=== PATIENT | female | born 1950 | race Caucasian/White ===

== ENCOUNTER 2016-07-31 10:19 | Day surgery (SDC) | payer BC ==
[~2016-07-31] VITALS: Ht 154.9 cm; Wt 88.7 kg
[~2016-07-31 10:19] MED LIST: ALBU90AE INH; CYCL30DR BOTH EYES; DIPH25TA43 PO; IBUP200C62 PO; LIDOCAINE 1% (10mg/ml) 2ml SDV INJ ONE; LOSA100T44 PO; LOTE3.5O BOTH EYES; LOTE5DRO2 OP; LR 1,000 ML IV SCH; MOME13HF4 INH; MULT-933 PO; PARO-38 PO; PHENYLEPHRINE 10% RIGHT EYE ONE; PRAV10TA42 PO; [UNRECOGNIZED DRUG - CODE] BOTH EYES
--- OUTSIDE RECORDS SUMMARY | 2016-07-31 10:31 | XMS REPORT | Summary of Care ---
Author Author Ana Laura Shah M.D. Organization Unknown Address [address] [place], [place] [id number] Phone Unavailable Care Team Providers Care Rn Chronic Name Role Phone Ana Laura Shah M.D. Unavailable Unavailable Yeimy Shah PP Unavailable Unavailable Unavailable Functional Status Functional Status Health Issues* Name Dates Details Functional status health issues are not documented Status: Cognitive Status Health Issues* Name Dates Details Cognitive status health issues are not documented Status: Problems Name Dates Details Scar of knee (709.2, L90.5) Status: Active Visit for screening mammogram (V76.12, Z12.31) Status: Active Dehydration (276.51, E86.0) Status: Active Asthmatic bronchitis (493.90, J45.909) Status: Active Depression (311, F32.9) Status: Active History Of Hypercholesterolemia (V12.29, Z86.39) Status: Resolved HTN (hypertension) (401.9, I10) Status: Active Shortness of breath (786.05, R06.02) Status: Active Palpitation (785.1, R00.2) Status: Active Wellness examination (V70.0, Z00.00) Status: Active Non smoker (V49.89, Z78.9) Status: Active Medications Name Dates Details Multiple Vitamin Oral Tablet TAKE 1 TABLET DAILY. Quantity: 30 Ana Laura Shah M.D.* Started 08-Feb-2014 ActivePravastatin Sodium 10 MG Oral Tablet TAKE 1 TABLET DAILY. * Quantity: 90 Refills: 3 Ana Laura Shah M.D.* Started 08-Feb-2014 ActivePARoxetine HCl - 20 MG Oral Tablet TAKE 1 TABLET DAILY. * Quantity: 90 Refills: 3 Ana Laura Shah M.D.* Started 08-Feb-2014 ActiveLotemax 0.5 % Ophthalmic Ointment Apply one time daily * Quantity: 1.5 Refills: 0 Ana Laura Shah M.D.* Started 08-Feb-2014 ActiveRestasis 0.05 % Ophthalmic Emulsion INSTILL 1 DROP IN EACH EYE TWICE DAILY NEEDED * Quantity: 1 Refills: 0 Ana Laura Shah M.D.* Started 08-Feb-2014 ActiveErythromycin 2 % External Solution APPLY SPARINGLY ONCE OR TWICE DAILY NEEDED. * Quantity: 1 Refills: 2 Ana Laura Shah M.D.* Started 16-Feb-2014 Quaghq75 ML Bottle Losartan Potassium 100 MG Oral Tablet TAKE 1 TABLET DAILY. * Quantity: 90 Refills: 3 Ana Laura Shah M.D.* Started 26-May-2014 ActiveProAir HFA 108 (90 Base) MCG/ACT Inhalation Aerosol Solution INHALE 1 TO 2 PUFFS EVERY 4 TO 6 HOURS NEEDED. * Quantity: 1 Refills: 3 Ana Laura Shah M.D.* Started 26-May-2014 Active8.5 GM Inhaler Losartan Potassium 100 MG Oral Tablet take one tablet by mouth every day * Quantity: 30 Refills: 3 Ana Laura Shah M.D.* Started 21-Aug-2015 ActiveAnucort-HC 25 MG Rectal Suppository INSERT 1 SUPPOSITORY RECTALLY 2 TIMES DAILY. * Quantity: 20 Refills: 0 Ana Laura Shah M.D.* Started 21-Aug-2015 ActiveFluticasone Propionate 50 MCG/ACT Nasal Suspension USE 1 SPRAY IN EACH NOSTRIL ONCE DAILY. * Quantity: 3 Refills: 3 Ana Laura Shah M.D.* Started 21-Aug-2015 Active Allergies and Adverse Reactions Name Dates Details No Known Drug Allergies Status: Active Past Medical History Name Dates Details History of Anxiety (300.00, F41.9) Status: Resolved History of glaucoma (V12.49, Z86.69) Status: Resolved History Of Hypercholesterolemia (V12.29, Z86.39) Status: Resolved History of hypertension (V12.59, Z86.79) Status: Resolved Procedures Procedure Dates Details History of Tonsillectomy With Adenoidectomy History of Section History of Cataract Surgery History of Tubal Ligation History of Adrenal Gland History of Breast Surgery Lumpectomy ECG/ EKG Pendin21-Aug-2015 CBC w/ Auto Diff 7150 Ordered:21-Aug-2015 Comprehensive Metabolic Panel 1212 Ordered:21-Aug-2015 FREE T4 3604 Ordered:21-Aug-2015 THYROID STIM. HORMONE 3602 Ordered:21-Aug-2015 XRay CHEST-PA & LAT Ordered:21-Aug-2015 Immunization Name Dates Details Zoster (Zostavax) Administered on:02-Mar-2013 Diphtheria-Tetanus Toxoids 6.7-5 LFU/0.5ML Intramuscular Injectable Administered on:20-Feb-2015 Tdap (Adacel) Lot #: [id number] Administered on:20-Feb-2015 Family History Grandmother* Name Dates Details Family history of acute myocardial infarction (V17.3, Z82.49) Status: Active Sibling* Name Dates Details Family history of alcohol abuse (V61.41, Z81.1) Status: Active Family history of coronary arteriosclerosis (V17.3, Z82.49) Status: Active Mother* Name Dates Details Family history of chronic obstructive pulmonary disease (V17.6, Z82.5) Status: Active Family history of Ovarian cancer (183.0, C56.9) Status: Active Father* Name Dates Details Family history of hypertension (V17.49, Z82.49) Status: Active Family history of alcohol abuse (V61.41, Z81.1) Status: Active Family history of acute myocardial infarction (V17.3, Z82.49) Status: Active Family history of alcoholism (V17.0, Z81.1) Status: Active Brother* Name Dates Details Family history of acute myocardial infarction (V17.3, Z82.49) Status: Active Family history of alcoholism (V17.0, Z81.1) Status: Active Social History Name Dates Details Smoking Status* Never smoker Vital Signs Date Test Result Details 21-Aug-2015 09:15 BP Systolic 144 mm[Hg] Status: BP Diastolic 90 mm[Hg] Status: Heart Rate 68 /min Status: Respiration Rate 18 /min Status: Weight 201 lb Status: Body Mass Index Calculated 38.61 kg/m2 Status: Body Surface Area Calculated 1.88 m2 Status: Results Date Description Value Details 21-Aug-2015 09:50 PAP SMEAR 9600 PAP SMEAR Negative (Better) Range: 0 Plan of Care Planned Observations* Name Dates Details Planned Goals not documented Goal Planned Encounters* Appointment; Provider: Ana Laura Shah On 22-Feb-2016 09:30 * Appointment; Provider: Vandana Art On 29-Aug-2015 14:45 Instructions * Instructions not documented Encounters Appointment; Ana Laura Shah Encounter Diagnosis: Problem not documented On 21-Aug-2015 09:00 Appointment; Ana Laura Shah Encounter Diagnosis: Problem not documented On 20-Apr-2015 08:40 Appointment; Ana Laura Sahh Encounter Diagnosis: Problem not documented On 20-Feb-2015 09:00 Appointment; Ana Laura Shah Encounter Diagnosis: Problem not documented On 10:45 Appointment; Ana Laura Shah Encounter Diagnosis: Problem not documented On 26-May-2014 08:15 Appointment; Ana Laura Shah Encounter Diagnosis: Problem not documented On 06-Apr-2014 12:15 Appointment; Ana Laura Shah Encounter Diagnosis: Problem not documented On 03-Mar-2014 12:45 Appointment; Ana Laura Shah Encounter Diagnosis: Problem not documented On 23-Feb-2014 12:00 Appointment; Ana Laura Shah Encounter Diagnosis: Problem not documented On 08-Feb-2014 14:00
--- OUTSIDE RECORDS SUMMARY | 2016-07-31 10:31 | XMS REPORT | Summary of Care ---
Author Author Ana Laura Shah M.D. Organization Unknown Address [address] [place], [place] [id number] Phone Unavailable Care Team Providers Care Hourly Sales Staff Name Role Phone Ana Laura Shah M.D. Unavailable Unavailable Ana Laura Shah PP Unavailable Functional Status Functional Status Health Issues* Name Dates Details Functional status health issues are not documented Status: Cognitive Status Health Issues* Name Dates Details Cognitive status health issues are not documented Status: Problems Name Dates Details Eyes swollen (379.92, H57.8) Status: Active Atrophic, spots skin (701.3, L90.6) Status: Active History Of Hypercholesterolemia (V12.29, Z86.39) Status: Resolved HTN (hypertension) (401.9, I10) Status: Active Depression (311, F32.9) Status: Active SOB (shortness of breath) (786.05, R06.02) Status: Active Medications Name Dates Details Multiple Vitamin Oral Tablet TAKE 1 TABLET DAILY. Quantity: 30 Ana Laura Shah M.D.* Started 08-Feb-2014 ActiveLotemax [...] 2 Ana Laura Shah M.D.* Started 16-Feb-2014 [id number] ML Bottle Losartan Potassium 50 MG Oral Tablet TAKE 1 TABLET DAILY. * Quantity: 30 Refills: 6 Ana Laura Shah M.D.* Started 26-May-2014 ActiveProAir HFA 108 (90 Base) MCG/ACT Inhalation Aerosol Solution INHALE 1 TO 2 PUFFS EVERY 4 TO 6 HOURS NEEDED. * Quantity: 1 Refills: 3 Ana Laura Shah M.D.* Started 26-May-2014 Active8.5 GM Inhaler PARoxetine HCl - 20 MG Oral Tablet TAKE 1 TABLET DAILY. * Quantity: 90 Refills: 3 Ana Laura Shah M.D.* Started 08-Feb-2014 ActivePravastatin Sodium 10 MG Oral Tablet TAKE 1 TABLET DAILY. * Quantity: 90 Refills: 3 Ana Laura Shah M.D.* Started 08-Feb-2014 Active Allergies and Adverse Reactions Name Dates [...] Adrenal Gland History of Breast Surgery Lumpectomy Procedures not documented Immunization Name Dates Details Immunizations not documented Family History Grandmother* Name Dates Details Family [...] smoker Vital Signs Date Test Result Details 26-May-2014 08:11 BP Systolic 136 mm[Hg] Status: BP Diastolic 92 mm[Hg] Status: Heart Rate 72 /min Status: Respiration Rate 16 /min Status: Weight 196.125 lb Status: Height 60.5 in Status: Body Mass Index Calculated 37.67 kg/m2 Status: Body Surface Area Calculated 1.86 m2 Status: Results Date Description Value Details 26-May-2014 08:38 CBC w/ Auto Diff 7150 Comments: Fastin hours WBC 4.8 K/uL (Better) Range: 4.5-11.0 RBC 5.07 mil/uL (Above high threshold) Range: 3.60-5.00 HGB 15.1 g/dL (Better) Range: 12.0-16.0 HCT 44.7 % (Better) Range: 36.0-48.0 MCV 88.2 fL (Better) Range: 80.0-99.0 MCH 29.9 pg (Better) Range: 27.3-32.5 MCHC 33.9 % (Better) Range: 32.0-36.0 RDW 13.0 % (Better) Range: 11.6-14.8 PLATELETS 200 K/uL (Better) Range: 150-400 MPV 7.2 fL (Better) Range: 6.0-11.0 %NEUTRO 53.5 % (Better) Range: 37.0-80.0 %LYMPHS 29.2 % (Better) Range: 13.0-50.0 %MONO 5.8 % (Better) Range: 0.0-12.0 %EOS 7.4 % (Above high threshold) Range: 0.0-7.0 %BASO 1.6 % (Better) Range: 0.0-2.5 %HAM 2.3 % (Better) Range: 0.0-5.0 NEUTRO 2.6 K/uL (Better) Range: 2.0-6.9 LYMPHS 1.4 K/uL (Better) Range: 0.6-3.4 MONOS 0.3 K/uL (Better) Range: 0.0-0.9 EOS 0.4 K/uL (Better) Range: 0.0-0.7 BASO 0.1 K/uL (Better) Range: 0.0-0.2 09:10 BASIC METABOLIC PROFILE 1210 Comments: Fastin hours SODIUM 145 mmol/L (Above high threshold) Range: 133-144 POTASSIUM 4.3 mmol/L (Better) Range: 3.5-5.1 CHLORIDE 107 mmol/L (Better) Range: 98-110 CARBON DIOXIDE 31.2 mmol/L (Better) Range: 23.0-33.0 ANION GAP 7 mmol/L (Better) Range: 6-16 BUN 24 mg/dL (Above high threshold) Range: 7-18 CREATININE, SERUM 0.92 mg/dL (Better) Range: 0.43-1.13 EST GFR, >60 ml/min (Better) Range: >60 EST GFR, NON-AFR [place] >60 ml/min (Better) Range: >60 Comments: EST GFR is reported in ml/min per 1.73 m2 of body surface area. For -Danish, please multiple result by 1.2.----- BUN:CREATININE RATIO 26 (Better) GLUCOSE 95 mg/dL (Better) Range: 70-100 CALCIUM 8.6 mg/dL (Better) Range: 8.5-10.1 09:10 LIVER PROFILE 1215 Comments: Fastin hours ALK PHOSPHATASE 48 U/L (Better) Range: 46-116 Comments: Please Note: New Reference Range effective 2013.----- TOTAL BILIRUBIN 0.40 mg/dL (Better) Range: 0.20-1.00 DIRECT BILIRUBIN 0.10 mg/dL (Better) Range: 0.00-0.20 AST 12 U/L (Better) Range: 8-35 ALT 25 U/L (Better) Range: 12-78 ALBUMIN 3.7 g/dL (Better) Range: 3.4-5.0 TOTAL PROTEIN 7.1 g/dL (Better) Range: 6.4-8.2 09:13 FREE T4 3604 Comments: Fastin hours FREE T4 1.05 ng/dL (Better) Range: 0.80-1.67 09:13 THYROID STIM. HORMONE 3602 Comments: Fastin hours THYROID STIM. HORMONE 2.566 uIU/mL (Better) Range: 0.550-4.780 Comments: \[id number]\No established reference ranges for infants and children < 2 years of ageNo established reference ranges for infants and children <2 years of age----- Plan of Care Planned Observations* Name Dates Details Planned Goals not documented Goal Planned Encounters* Appointment; Provider: Ana Laura Shah On 14-Feb-2015 09:00 * Appointment; Provider: Ana Laura Shah On 08:15 Instructions * Instructions not documented Encounters Appointment; Ana Laura Shah Diagnosis: Problem not documented On 26-May-2014 08:15 Appointment; Ana Laura Shah Encounter Diagnosis: Problem not documented On 06-Apr-2014 12:15 Appointment; Ana Laura Shah Diagnosis: Problem not documented On 03-Mar-2014 12:45 Appointment; Ana Laura Shah Diagnosis: Problem not documented On 23-Feb-2014 12:00 Appointment; Ana Laura Shah Diagnosis: Problem not documented On 08-Feb-2014 14:00
--- OUTSIDE RECORDS SUMMARY | 2016-07-31 10:31 | XMS REPORT | Summary of Care ---
Author Author Ana Laura Shah M.D. Organization Unknown Address [address] [place], [place] [id number] Phone Unavailable Care Team Providers Care Game Programer Name Role Phone Ana Laura Shah M.D. Unavailable Unavailable Yeimy Shah Unavailable Unavailable Unavailable Unavailable Functional Status Name Dates Details Functional status health issues are not documented Status: Name Dates Details Cognitive status health issues are not documented Status: Problems Name Dates Details Non smoker (V49.89, Z78.9) Status: Active Encounter for screening for malignant neoplasm of colon (V76.51, Z12.11) Status: Active Colon polyp (211.3, K63.5) Status: Active Hyperlipidemia (272.4, E78.5) Status: Active Asthmatic bronchitis (493.90, J45.909) Status: Active Depression (311, F32.9) Status: Active History of hypercholesterolemia (V12.29, Z86.39) Status: Resolved HTN (hypertension) (401.9, I10) Status: Active Special screening examination for other specified viral diseases (V73.89, Z11.59) Status: Active Preop examination (V72.84, Z01.818) Status: Active Pre-operative exam (V72.84, Z01.818) Status: Active Medications Name Dates Details Multiple Vitamin TABS TAKE 1 TABLET DAILY. Quantity: 30 Shah M.D., Ana Laura * Start 08-Feb-2014 Active Pravastatin Sodium 10 MG Oral Tablet TAKE 1 TABLET DAILY. * Quantity: 90 Refills: 3 Shah M.D., Ana Laura * Start 08-Feb-2014 Active PARoxetine HCl - 20 MG Oral Tablet TAKE 1 TABLET DAILY. * Quantity: 90 Refills: 3 Shah M.D., Ana Laura * Start 08-Feb-2014 Active Lotemax 0.5 % Ophthalmic Ointment Apply one time daily * Quantity: 1.5 Refills: 0 Shah M.D., Ana Laura * Start 08-Feb-2014 Active Restasis 0.05 % Ophthalmic Emulsion INSTILL 1 DROP IN EACH EYE TWICE DAILY NEEDED * Quantity: 1 Refills: 0 Shah M.D., Ana Laura * Start 08-Feb-2014 Active Erythromycin 2 % External Solution APPLY SPARINGLY ONCE OR TWICE DAILY NEEDED. * Quantity: 1 Refills: 2 Pablo Medina Ana Laura Roderick Start 16-Feb-2014 Active 60 ML Bottle ProAir HFA 108 (90 Base) MCG/ACT Inhalation Aerosol Solution INHALE 1 TO 2 PUFFS EVERY 4 TO 6 HOURS NEEDED. * Quantity: 1 Refills: 5 Pablo Medina Ana Laura * Start 26-May-2014 Active 8.5 GM Inhaler Losartan Potassium 100 MG Oral Tablet take one tablet by mouth every day * Quantity: 30 Refills: 3 Pablo Allen.Lamonte Ana Laura * Start 21-Aug-2015 Active Fluticasone Propionate 50 MCG/ACT Nasal Suspension USE 1 SPRAY IN EACH NOSTRIL ONCE DAILY. * Quantity: 3 Refills: 3 Pablo Allen.Lamonte Ana Laura * Start 21-Aug-2015 Active Dulera 100-5 MCG/ACT Inhalation Aerosol INHALE 2 PUFFS TWICE DAILY. * Quantity: 1 Refills: 1 Pablo Medina Ana Laura * Start 18-Jan-2016 Active 13 GM Inhaler AmLODIPine Besylate 5 MG Oral Tablet TAKE 1 TABLET DAILY. * Quantity: 30 Refills: 3 Pablo Medina Ana Laura Roderick Start 19-Jul-2016 Active Allergies and Adverse Reactions Name Dates Details No Known Drug Allergies (Allergy) Status: Active Past Medical History Name Dates Details History of Anxiety (300.00, F41.9) Status: Resolved History of glaucoma (V12.49, Z86.69) Status: Resolved History of hypercholesterolemia (V12.29, Z86.39) Status: Resolved History of hypertension (V12.59, Z86.79) Status: Resolved History of Visit for screening mammogram (V76.12, Z12.31) Status: Resolved History of Wellness examination (V70.0, Z00.00) Status: Resolved Procedures Procedure Dates Details History of Tonsillectomy With Adenoidectomy History of Section History of Cataract Surgery History of Tubal Ligation History of Adrenal Gland History of Breast Surgery Lumpectomy Comprehensive Metabolic Panel 1212 Ordered: 19-Jul-2016 FREE T4 3604 Ordered: 19-Jul-2016 THYROID STIM. HORMONE 3602 Ordered: 19-Jul-2016 Hepatitis C ( HCV) Antibody w Reflex testing [id number] Ordered: 19-Jul-2016 Immunization Name Dates Details Zoster (Zostavax) on: 02-Mar-2013 Diphtheria-Tetanus Toxoids 6.7-5 LFU/0.5ML INJ on: 20-Feb-2015 Tdap (Adacel) Lot #: [id number] on: 20-Feb-2015 Family History Name Dates Details Family history of acute myocardial infarction (V17.3, Z82.49) Status: Active Name Dates Details Family history of alcohol abuse (V61.41, Z81.1) Status: Active Family history of coronary arteriosclerosis (V17.3, Z82.49) Status: Active Name Dates Details Family history of chronic obstructive pulmonary disease (V17.6, Z82.5) Status: Active Family history of Ovarian cancer (183.0, C56.9) Status: Active Name Dates Details Family history of hypertension (V17.49, Z82.49) Status: Active Family history of alcohol abuse (V61.41, Z81.1) Status: Active Family history of acute myocardial infarction (V17.3, Z82.49) Status: Active Family history of alcoholism (V17.0, Z81.1) Status: Active Name Dates Details Family history of acute myocardial infarction (V17.3, Z82.49) Status: Active Family history of alcoholism (V17.0, Z81.1) Status: Active Social History Name Dates Details - Status: Name Dates Details Never smoker Vital Signs Date Test Result Details 19-Jul-2016 08:38 BP Systolic 148 mm[Hg] Status: Comments: Location: ; Position: BP Diastolic 80 mm[Hg] Status: Comments: Location: ; Position: Heart Rate 80 /min Status: Comments: Location: ; Physical Findings 18 Status: Comments: Respiration Weight 199 lb Status: Body Mass Index Calculated 38.22 kg/m2 Status: Body Surface Area Calculated 1.87 m2 Status: Results Date Description Value Details 19-Jul-2016 09:21 ECG/ EKG Preop Electro CardioGram ECG waiting for interpretation, click ImageLink button to view/confirm the study. 09:33 XRay CHEST-PA & LAT Comments: Exam Date: 07/19/2016 09:26Dictation Date: 07/19/2016 09:33 X CHEST PA & LAT 10:07 Urinalysis, Reflex to Microscopic or Culture PRN [id number] pH 5.5 Range: 5.0-7.5 SP GRAVITY 1.025 Range: 1.010-1.030 APPEARANCE CLOUDY (Abnormal) Range: Clear COLOR YELLOW Range: Straw-Yellow PROTEIN NEGATIVE mg/dL Range: Negative-Trace GLUCOSE NEGATIVE mg/dL Range: Negative KETONE NEGATIVE mg/dL Range: Negative BILIRUB NEGATIVE Range: Negative BLOOD NEGATIVE Range: Negative UROBIL 1.0 EU/dL Range: 0.2-1.0 NITRITE NEGATIVE Range: Negative LEUK NEGATIVE Range: Negative Plan of Care Name Dates Details Planned Observations Planned Goals not documented Planned Encounters Appointment; Provider: Ana Laura Shah M.D. On 29-Aug-2016 10:30 Interventions Provided Medication Changes* AmLODIPine Besylate 5 MG Oral Tablet - Start Labs/Procedures/Imaging* Comprehensive Metabolic Panel 1212; To be Done: 19 Jul 2016 * FREE T4 3604; To be Done: 19 Jul 2016 * Hepatitis C ( HCV) Antibody w Reflex testing [id number]; To be Done: 19 Jul 2016 * THYROID STIM. HORMONE 3602; To be Done: 19 Jul 2016 * Urinalysis, Reflex to Microscopic or Culture PRN [id number]; Done: Jul 19 2016 9: 40AM * XRay CHEST-PA & LAT; Done: Jul 19 2016 9:33AM Instructions Name Dates Details Instructions not documented Encounters Appointment; Ana Laura Shah M.D. Encounter Diagnosis: Problem not documented On 12-Mar-2016 09:45 Appointment; Ana Laura Shah M.D. Encounter Diagnosis: Problem not documented On 22-Feb-2016 09:30 Appointment; Willian Ty M.D. Encounter Diagnosis: Problem not documented On 05-Sep-2015 10:30 Appointment; Esme Juarez Encounter Diagnosis: Problem not documented On 05-Sep-2015 10:00 Appointment; Vandana Art M.D. Encounter Diagnosis: Problem not documented On 29-Aug-2015 14:45 Appointment; Ana Laura Shah M.D. Encounter Diagnosis: Problem not documented On 21-Aug-2015 09:00 Appointment; Ana Laura Shah M.D. Encounter Diagnosis: Problem not documented On 20-Apr-2015 08:40 Appointment; Ana Laura Shah M.D. Encounter Diagnosis: Problem not documented On 20-Feb-2015 09:00 Appointment; Ana Laura Shah M.D. Encounter Diagnosis: Problem not documented On 10:45
--- OUTSIDE RECORDS SUMMARY | 2016-07-31 10:31 | XMS REPORT | Summary of Care ---
Author Author Ana Laura Shah M.D. Organization Unknown Address [address] [place], [place] [id number] Phone Unavailable Care Team Providers Care Tooling Specialist Name Role Phone Ana Laura Shah M.D. Unavailable Unavailable Yeimy Shah Unavailable Unavailable Unavailable Unavailable Functional Status Name Dates Details Functional status health issues are not documented Status: Name Dates Details Cognitive status health issues are not documented Status: Problems Name Dates Details Dehydration (276.51, E86.0) Status: Active Non smoker (V49.89, Z78.9) Status: Active Encounter for screening for malignant neoplasm of colon (V76.51, Z12.11) Status: Active Colon polyp (211.3, K63.5) Status: Active Asthmatic bronchitis (493.90, J45.909) Status: Active Depression (311, F32.9) Status: Active History of hypercholesterolemia (V12.29, Z86.39) Status: Resolved HTN (hypertension) (401.9, I10) Status: Active Hyperlipidemia (272.4, E78.5) Status: Active Inflamed seborrheic keratosis (702.11, L82.0) Status: Active Medications Name Dates Details Multiple [...] NEEDED. * Quantity: 1 Refills: 2 Pablo Allen.D., Ana Laura * Start 16-Feb-2014 Active 60 ML Bottle ProAir HFA 108 (90 Base) MCG/ACT Inhalation Aerosol Solution INHALE 1 TO 2 PUFFS EVERY 4 TO 6 HOURS NEEDED. * Quantity: 1 Refills: 3 Shah M.D., Ana Laura * Start 26-May-2014 Active 8.5 GM Inhaler Losartan Potassium 100 MG Oral Tablet take one tablet by mouth every day * Quantity: 30 Refills: 3 Pablo Allen.D., Ana Laura * Start 21-Aug-2015 Active Anucort-HC 25 MG Rectal Suppository INSERT 1 SUPPOSITORY RECTALLY 2 TIMES DAILY. * Quantity: 20 Refills: 0 Pablo Allen.D. Ana Laura * Start 21-Aug-2015 Active Fluticasone Propionate 50 MCG/ACT Nasal Suspension USE 1 SPRAY IN EACH NOSTRIL ONCE DAILY. * Quantity: 3 Refills: 3 Pablo Allen.D., Ana Laura * Start 21-Aug-2015 Active Dulera 100-5 MCG/ACT Inhalation Aerosol INHALE 2 PUFFS TWICE DAILY. * Quantity: 1 Refills: 1 Pablo Allen.Lamonte Ana Laura * Start 18-Jan-2016 Active 13 GM Inhaler PredniSONE 10 MG Oral Tablet 3 pills for 3 days, 2 pills for 3 days, 1 pill for 3 days then stop * Quantity: 18 Refills: 0 Shah M.D., Ana Laura * Start 22-Feb-2016 Active Allergies and Adverse Reactions Name Dates [...] Procedures not documented Immunization Name Dates Details Zoster (Zostavax) on: 02-Mar-2013 Diphtheria-Tetanus Toxoids 6.7-5 LFU/0.5ML INJ on: 20-Feb-2015 Tdap (Adacel) Lot #: [id number] on: 20-Feb-2015 Family History Name Dates Details [...] smoker Vital Signs Date Test Result Details 22-Feb-2016 09:41 BP Systolic 128 mm[Hg] Status: Comments: Location: ; Position: BP Diastolic 80 mm[Hg] Status: Comments: Location: ; Position: Heart Rate 72 /min Status: Comments: Location: ; Physical Findings 18 Status: Comments: Respiration Height 60.5 in Status: Weight 198 lb Status: Body Mass Index Calculated 38.03 kg/m2 Status: Body Surface Area Calculated 1.87 m2 Status: Results Date Description Value Details 22-Feb-2016 10:16 CBC w/ Auto Diff 7150 Comments: Fastin hours WBC 4.1 K/uL (Below low threshold) Range: 4.5-11.0 RBC 4.78 mil/uL Range: 3.60-5.00 HGB 14.3 g/dL Range: 12.0-16.0 HCT 42.3 % Range: 36.0-48.0 MCV 88.6 fL Range: 80.0-99.0 MCH 29.9 pg Range: 27.3-32.5 MCHC 33.8 % Range: 32.0-36.0 RDW 13.2 % Range: 11.6-14.8 PLATELETS 199 K/uL Range: 150-400 MPV 6.4 fL Range: 6.0-11.0 %NEUTRO 59.4 % Range: 37.0-80.0 %LYMPHS 22.3 % Range: 13.0-50.0 %MONO 5.0 % Range: 0.0-12.0 %EOS 9.8 % (Above high threshold) Range: 0.0-7.0 %BASO 0.8 % Range: 0.0-2.5 %HAM 2.8 % Range: 0.0-5.0 NEUTRO 2.4 K/uL Range: 2.0-6.9 LYMPHS 0.9 K/uL Range: 0.6-3.4 MONOS 0.2 K/uL Range: 0.0-0.9 EOS 0.4 K/uL Range: 0.0-0.7 BASO 0.0 K/uL Range: 0.0-0.2 10:35 LIPID PROFILE 1184 Comments: Fastin hours CHOLESTEROL 191 mg/dL Range: <200 TRIGLYCERIDES 143 mg/dL Range: 30-200 HDL Cholesterol 53 mg/dL Range: >39 NON HDL CHOLESTEROL 138 CARDIAC RSK FACTOR 3.6 units (Below low threshold) Range: 4.4-5.0 LDL - CALCULATED 109 mg/dL Range: 0-130 10:39 Comprehensive Metabolic Panel 1212 Comments: Fastin hours SODIUM 144 mmol/L Range: 133-144 POTASSIUM 4.8 mmol/L Range: 3.5-5.1 CHLORIDE 105 mmol/L Range: 98-110 CARBON DIOXIDE 31.1 mmol/L Range: 23.0-33.0 ANION GAP 8 mmol/L Range: 6-16 BUN 18 mg/dL Range: 7-18 CREATININE, SERUM 0.99 mg/dL Range: 0.55-1.02 BUN:CREATININE RATIO 18 EST GFR, >60 ml/min Range: >60 EST GFR, NON-AFR CITIZEN OF [place] 57 ml/min (Below low threshold) Range: >60 Comments: EST GFR is reported in ml/min per 1.73 m2 of body surface area. ----- GLUCOSE 104 mg/dL (Above high threshold) Range: 70-100 ALK PHOSPHATASE 49 U/L Range: 46-116 TOTAL BILIRUBIN 0.40 mg/dL Range: 0.20-1.00 AST 16 U/L Range: 8-35 ALT 25 U/L Range: 14-59 ALBUMIN 3.6 g/dL Range: 3.4-5.0 TOTAL PROTEIN 7.0 g/dL Range: 6.4-8.2 A/G RATIO 1.1 units Range: 1.0-1.8 CALCIUM 8.5 mg/dL Range: 8.5-10.1 10:43 FREE T4 3604 Comments: Fastin hours FREE T4 1.01 ng/dL Range: 0.80-1.67 10:43 THYROID STIM. HORMONE 3602 Comments: Fastin hours THYROID STIM. HORMONE 0.843 uIU/mL Range: 0.550-4.780 Comments: No established reference ranges for infants and children <2 years of age----- Plan of Care Name Dates Details Planned Observations Planned Goals not documented Planned Encounters Appointment; Provider: Ana Laura Shah M.D. On 29-Aug-2016 10:30 Instructions Name Dates Details Instructions not documented Encounters Appointment; Ana Laura Shah M.D. Encounter Diagnosis: Problem not documented On 22-Feb-2016 09:30 Appointment; Willian yT M.D. Encounter Diagnosis: Problem not documented On 05-Sep-2015 10:30 Appointment; Larry, Esme Encounter Diagnosis: Problem not documented On 05-Sep-2015 [...] documented On 10:45 Appointment; Ana Laura Shah M.D. Encounter Diagnosis: Problem not documented On 26-May-2014 08:15 Appointment; Ana Laura Shah M.D. Encounter Diagnosis: Problem not documented On 06-Apr-2014 12:15
--- OUTSIDE RECORDS SUMMARY | 2016-07-31 10:31 | XMS REPORT | Summary of Care ---
Author Author Vandana Art M.D. Organization Unknown Address [address] [place], [place] [id number] Phone Unavailable Care Team Providers Care Instructional Paraprofessional Name Role Phone Pablo Medina, Ana Laura Unavailable Unavailable Karson Medina, Willian Unavailable Unavailable Yeimy Shah PP Unavailable Unavailable Unavailable Functional Status Functional Status Health Issues* Name Dates Details Functional status health issues are not documented Status: Cognitive Status Health Issues* Name Dates Details Cognitive status health issues are not documented Status: Problems Name Dates Details Scar of knee (709.2, L90.5) Status: Active Dehydration (276.51, E86.0) Status: Active Depression (311, F32.9) Status: Active History Of Hypercholesterolemia (V12.29, Z86.39) Status: Resolved Non smoker (V49.89, Z78.9) Status: Active Encounter for screening for malignant neoplasm of colon (V76.51, Z12.11) Status: Active Palpitation (785.1, R00.2) Status: Active Shortness of breath (786.05, R06.02) Status: Active Asthmatic bronchitis (493.90, J45.909) Status: Active Hyperlipidemia (272.4, E78.5) Status: Active HTN (hypertension) (401.9, I10) Status: Active Medications Name Dates Details Multiple [...] 2 Ana Laura Shah M.D.* Started 16-Feb-2014 [id number] ML Bottle ProAir HFA 108 (90 Base) [...] 3 Ana Laura Shah M.D.* Started 21-Aug-2015 ActivePEG-3350/Electrolytes 236 GM Oral Solution Reconstituted MIX AND DRINK DIRECTED PER COLONOSCOPY INSTRUCTIONS. * Quantity: 1 Refills: 0 Willian Ty M.D.* Started 22-Aug-2015 [id number] ML Bottle Allergies and Adverse Reactions Name Dates Details [...] of Breast Surgery Lumpectomy ECG/ EKG Pendin21-Aug-2015 Colonoscopy- Screening or Dx Ordered:21-Aug-2015 Cardiology Precert (within facility) Ordered:29-Aug-2015 XRay CHEST-PA & LAT Ordered:21-Aug-2015 Immunization Name Dates Details Zoster (Zostavax) Administered on:02-Mar-2013 Diphtheria-Tetanus Toxoids 6.7-5 LFU/0.5ML Intramuscular Injectable Administered on:20-Feb-2015 Tdap (Adacel) Lot #: [id number] Administered on:20-Feb-2015 Family History Grandmother* Name Dates [...] smoker Vital Signs Date Test Result Details 29-Aug-2015 14:56 BP Systolic 110 mm[Hg] Status: BP Diastolic 78 mm[Hg] Status: Heart Rate 98 /min Status: Weight 204.6 lb Status: O2 SAT 94 % Status: Body Mass Index Calculated 39.3 kg/m2 Status: Body Surface Area Calculated 1.9 m2 Status: 21-Aug-2015 09:15 BP Systolic 144 mm[Hg] Status: BP Diastolic 90 mm[Hg] Status: Heart Rate 68 /min Status: Respiration Rate 18 /min Status: Weight 201 lb Status: Body Mass Index Calculated 38.61 kg/m2 Status: Body Surface Area Calculated 1.88 m2 Status: Results Date Description Value Details 21-Aug-2015 09:50 PAP SMEAR 9600 PAP SMEAR Negative (Better) Range: 0 10:45 CBC w/ Auto Diff 7150 WBC 4.9 K/uL (Better) Range: 4.5-11.0 RBC 5.28 mil/uL (Above high threshold) Range: 3.60-5.00 HGB 15.7 g/dL (Better) Range: 12.0-16.0 HCT 49.0 % (Above high threshold) Range: 36.0-48.0 MCV 92.9 fL (Better) Range: 80.0-99.0 MCH 29.8 pg (Better) Range: 27.3-32.5 MCHC 32.0 % (Better) Range: 32.0-36.0 RDW 12.1 % (Better) Range: 11.6-14.8 PLATELETS 220 K/uL (Better) Range: 150-400 MPV 7.6 fL (Better) Range: 6.0-11.0 %NEUTRO 54.1 % (Better) Range: 37.0-80.0 %LYMPHS 32.0 % (Better) Range: 13.0-50.0 %MONO 5.0 % (Better) Range: 0.0-12.0 %EOS 5.3 % (Better) Range: 0.0-7.0 %BASO 1.4 % (Better) Range: 0.0-2.5 %HAM 2.2 % (Better) Range: 0.0-5.0 NEUTRO 2.7 K/uL (Better) Range: 2.0-6.9 LYMPHS 1.6 K/uL (Better) Range: 0.6-3.4 MONOS 0.2 K/uL (Better) Range: 0.0-0.9 EOS 0.3 K/uL (Better) Range: 0.0-0.7 BASO 0.1 K/uL (Better) Range: 0.0-0.2 11:03 Comprehensive Metabolic Panel 1212 SODIUM 137 mmol/L (Better) Range: 133-144 POTASSIUM 4.5 mmol/L (Better) Range: 3.5-5.1 CHLORIDE 99 mmol/L (Better) Range: 98-110 CARBON DIOXIDE 31.3 mmol/L (Better) Range: 23.0-33.0 ANION GAP 7 mmol/L (Better) Range: 6-16 BUN 20 mg/dL (Above high threshold) Range: 7-18 CREATININE, SERUM 1.09 mg/dL (Above high threshold) Range: 0.55-1.02 Comments: Please note new reference ranges effective 2014.----- BUN:CREATININE RATIO 18 (Better) EST GFR, >60 ml/min (Better) Range: >60 EST GFR, NON-AFR [place] 51 ml/min (Below low threshold) Range: >60 Comments: EST GFR is reported in ml/min per 1.73 m2 of body surface area. For -[place], please multiple result by 1.2.----- GLUCOSE 97 mg/dL (Better) Range: 70-100 ALK PHOSPHATASE 48 U/L (Better) Range: 46-116 TOTAL BILIRUBIN 0.50 mg/dL (Better) Range: 0.20-1.00 AST 17 U/L (Better) Range: 8-35 ALT 31 U/L (Better) Range: 14-59 Comments: Please note new reference ranges. Effective 07/28/2014.----- ALBUMIN 3.9 g/dL (Better) Range: 3.4-5.0 TOTAL PROTEIN 7.3 g/dL (Better) Range: 6.4-8.2 A/G RATIO 1.1 units (Better) Range: 1.0-1.8 CALCIUM 8.9 mg/dL (Better) Range: 8.5-10.1 11:26 FREE T4 3604 FREE T4 1.02 ng/dL (Better) Range: 0.80-1.67 11:26 THYROID STIM. HORMONE 3602 THYROID STIM. HORMONE 2.046 uIU/mL (Better) Range: 0.550-4.780 Comments: No established reference ranges for infants and children <2 years of age----- 29-Aug-2015 14:46 ECG/ EKG (Specialists) Electro CardioGram (Better) Plan of Care Planned Observations* Name Dates Details Planned Goals not documented Goal Planned Encounters* Appointment; Provider: Ana Laura Shah On 22-Feb-2016 09:30 * Appointment; Provider: Willian Ty On 05-Sep-2015 10:30 * Appointment; Provider: Esme Juarez On 05-Sep-2015 10:00 Instructions * Instructions not documented Encounters Appointment; Vandana Art Encounter Diagnosis: Problem not documented On 29-Aug-2015 14:45 Appointment; Ana Laura Shah Encounter Diagnosis: Problem not documented On 21-Aug-2015 09:00 Appointment; Ana Laura Shah Encounter Diagnosis: Problem not documented On 20-Apr-2015 08:40 Appointment; Ana Laura Shah Encounter Diagnosis: Problem not documented On 20-Feb-2015 [...]
--- OUTSIDE RECORDS SUMMARY | 2016-07-31 10:31 | XMS REPORT | Summary of Care ---
Author Author Ana Laura Shah M.D. Organization Unknown Address [address] [place], [place] [id number] Phone Unavailable Care Team Providers Care Shingle Shearing Machine Operator Name Role Phone Ana Laura Shah M.D. [...] Status: Active Hyperlipidemia (272.4, E78.5) Status: Active Medications Name Dates Details Multiple [...] DAILY NEEDED. * Quantity: 1 Refills: 2 Shah M.D., Ana Laura * Start 16-Feb-2014 Active 60 ML Bottle ProAir HFA 108 (90 Base) MCG/ACT Inhalation Aerosol Solution INHALE 1 TO 2 PUFFS EVERY 4 TO 6 HOURS NEEDED. * Quantity: 1 Refills: 3 Pablo Medina Ana Laura * Start 26-May-2014 Active 8.5 GM Inhaler Losartan Potassium 100 MG Oral Tablet take one tablet by mouth every day * Quantity: 30 Refills: 3 Ana Laura Shah M.D. Start 21-Aug-2015 Active Anucort-HC 25 MG Rectal Suppository INSERT 1 SUPPOSITORY RECTALLY 2 TIMES DAILY. * Quantity: 20 Refills: 0 Ana Laura Shah M.D. Start 21-Aug-2015 Active Fluticasone Propionate 50 MCG/ACT Nasal Suspension USE 1 SPRAY IN EACH NOSTRIL ONCE DAILY. * Quantity: 3 Refills: 3 Ana Laura Shah M.D. Start 21-Aug-2015 Active Dulera 100-5 MCG/ACT Inhalation Aerosol INHALE 2 PUFFS TWICE DAILY. * Quantity: 1 Refills: 1 Ana Laura Shah M.D. Start 18-Jan-2016 Active 13 GM Inhaler PredniSONE 10 MG Oral Tablet 3 pills for 3 days, 2 pills for 3 days, 1 pill for 3 days then stop * Quantity: 18 Refills: 0 Pablo Medina Ana Alura * Start 22-Feb-2016 Active Allergies and Adverse [...] Adrenal Gland History of Breast Surgery Lumpectomy CBC w/ Auto Diff 7150 Ordered: 22-Feb-2016 Comprehensive Metabolic Panel 1212 Ordered: 22-Feb-2016 FREE T4 3604 Ordered: 22-Feb-2016 THYROID STIM. HORMONE 3602 Ordered: 22-Feb-2016 LIPID PROFILE 1184 Ordered: 22-Feb-2016 Immunization Name Dates Details Zoster (Zostavax) on: 02-Mar-2013 Diphtheria-Tetanus Toxoids 6.7-5 LFU/0.5ML INJ on: 20-Feb-2015 Tdap (Adacel) Lot #: [id number] on: 20-Feb-2015 Family History Name Dates Details [...] m2 Status: Results Date Description Value Details Results not documented Plan of Care Name Dates Details Planned Observations Planned Goals not documented Planned Encounters Appointment; Provider: Ana Laura Shah M.D. On 29-Aug-2016 10:30 Appointment; Provider: Ana Laura Shah M.D. On 06-Mar-2016 09:45 Interventions Provided Medication Changes* PredniSONE 10 MG Oral Tablet - Start Labs/Procedures/Imaging* CBC w/ Auto Diff 7150; To be Done: 22 Feb 2016 * Comprehensive Metabolic Panel 1212; To be Done: 22 Feb 2016 * FREE T4 3604; To be Done: 22 Feb 2016 * LIPID PROFILE 1184; To be Done: 22 Feb 2016 * THYROID STIM. HORMONE 3602; To be Done: 22 Feb 2016 Instructions Name Dates Details Instructions not documented Encounters Appointment; Willian Ty M.D. Encounter Diagnosis: Problem [...] On 06-Apr-2014 12:15 Appointment; Ana Laura Shah M.D. Encounter Diagnosis: Problem not documented On 03-Mar-2014 12:45 Appointment; Ana Laura Shah M.D. Encounter Diagnosis: Problem not documented On 23-Feb-2014 12:00
--- OUTSIDE RECORDS SUMMARY | 2016-07-31 10:32 | XMS REPORT | Summary of Care ---
Author Author Pablo Medina, Ana Laura Organization Unknown Address [address] [place], [place] [id number] Phone Unavailable Care Team Providers Care Lead Auditor Name Role Phone Ana Laura Shah Unavailable Unavailable Functional Status Functional Status Health Issues* Name Dates Details No known functional status health issues Status: Cognitive Status Health Issues* Name Dates Details No known cognitive status health issues Status: Problems Name Dates Details HTN (hypertension) (401.9, I10) Status: Active Eyes swollen (379.92, H57.8) Status: Active History Of Hypercholesterolemia (V12.29, Z86.39) Status: Resolved Depression (311, F32.9) Status: Active Medications Name Dates Details Multiple Vitamin Oral Tablet TAKE 1 TABLET DAILY. Quantity: 30 Tablet * Started 08-Feb-2014 ActivePravastatin Sodium 10 MG Oral Tablet TAKE 1 TABLET DAILY. * Quantity: 90 Tablet Refills: 3 * Started 08-Feb-2014 ActiveNIFEdipine ER 30 MG Oral Tablet Extended Release 24 Hour TAKE 1 TABLET DAILY DIRECTED. * Quantity: 90 Tablet Extended Release 24 Hour Refills: 3 * Started 08-Feb-2014 ActivePARoxetine HCl - 20 MG Oral Tablet TAKE 1 TABLET DAILY. * Quantity: 90 Tablet Refills: 3 * Started 08-Feb-2014 ActiveErythromycin 2 % External Gel APPLY AND RUB IN A THIN FILM TO AFFECTED AREA(S) ONCE OR TWICE DAILY NEEDED * Quantity: 1X60 GM Tube Refills: 2 * Started 08-Feb-2014 ActiveLotemax 0.5 % Ophthalmic Ointment Apply one time daily * Quantity: 1.5 GM Refills: 0 * Started 08-Feb-2014 ActiveRestasis 0.05 % Ophthalmic Emulsion INSTILL 1 DROP IN EACH EYE TWICE DAILY NEEDED * Quantity: 1 Emulsion Refills: 0 * Started 08-Feb-2014 Active Allergies and Adverse Reactions Name Dates Details Allergy history not documented Status: Past Medical History Name Dates Details History of glaucoma (V12.49, Z86.69) Status: Resolved History Of Hypercholesterolemia (V12.29, Z86.39) Status: Resolved History of hypertension (V12.59, Z86.79) Status: Resolved Anxiety (300.00, F41.9) Status: Resolved Procedures Procedure Dates Details Tonsillectomy With Adenoidectomy Section Cataract Surgery Tubal Ligation Adrenal Gland Breast Surgery Lumpectomy BASIC METABOLIC PROFILE 1210 CBC w/ Auto Diff 7150 FREE T4 3604 LIPID PROFILE 1184 LIVER PROFILE 1215 THYROID STIM. HORMONE 3602 Immunization Name Dates Details Immunizations not documented Family History Grandmother* Name Dates Details Family history of acute myocardial infarction (V17.3, Z82.49) Status: Active Sibling* Name Dates Details Family history of alcohol abuse (V61.41, Z81.1) Status: Active Family history of coronary arteriosclerosis (V17.3, Z82.49) Status: Active Mother* Name Dates Details Family history of chronic obstructive pulmonary disease (V17.6, Z82.5) Status: Active Ovarian cancer (183.0, C56.9) Status: Active Father* [...] Status: Active Social History Name Dates Details Never smoked (V49.89, Z78.9) Smoking Status* Never smoker Vital Signs Date Test Result Details 08-Feb-2014 13:56 BP Systolic 108 mm[Hg] Status: BP Diastolic 72 mm[Hg] Status: Heart Rate 88 /min Status: Respiration Rate 12 /min Status: Weight 200.125 lb Status: Height 61 in Status: Body Mass Index Calculated 37.81 kg/m2 Status: Body Surface Area Calculated 1.89 Status: Results Date Description Value Details Results not documented Plan of Care Instructions* Instructions not documented Planned Observations* Name Dates Details Planned Goals not documented Goal Planned Encounters* Appointment; Provider: Ana Laura Shah On 14-Feb-2015 09:00 Instructions * No Known Instructions Encounters Appointment; Ana Laura Shah Encounter Diagnosis: Problem not documented On 08-Feb-2014 14:00
--- OUTSIDE RECORDS SUMMARY | 2016-07-31 10:32 | XMS REPORT | Summary of Care ---
Author Author Ana Laura Shah M.D. Organization Unknown Address [address] [place], [place] [id number] Phone Unavailable Care Team Providers Care Project Program Manager Name Role Phone Ana Laura Shah M.D. Unavailable Unavailable Yeimy Shah PP Unavailable Functional Status Functional Status Health Issues* Name Dates Details Functional status health issues are not documented Status: Cognitive Status Health Issues* Name Dates Details Cognitive status health issues are not documented Status: Problems Name Dates Details Depression (311, F32.9) Status: Active History Of Hypercholesterolemia (V12.29, Z86.39) Status: Resolved HTN (hypertension) (401.9, I10) Status: Active Scar of knee (709.2, L90.5) Status: Active Visit for screening mammogram (V76.12, Z12.31) Status: Active Medications Name Dates Details Multiple [...] 2 Ana Laura Shah M.D.* Started 16-Feb-2014 Oemfvj31 ML Bottle Losartan Potassium 50 MG Oral Tablet TAKE 1 TABLET DAILY. * Quantity: 30 Refills: 6 Ana Laura Shah M.D.* Started 26-May-2014 ActiveProAir HFA 108 (90 Base) MCG/ACT Inhalation Aerosol Solution INHALE 1 TO 2 PUFFS EVERY 4 TO 6 HOURS NEEDED. * Quantity: 1 Refills: 3 Ana Laura Shah M.D.* Started 26-May-2014 Active8.5 GM Inhaler Allergies and Adverse Reactions Name Dates Details [...] Adrenal Gland History of Breast Surgery Lumpectomy MAMMOGRAM-SCREENING Ordered:20-Feb-2015 Immunization Name Dates Details Zoster (Zostavax) Administered on:02-Mar-2013 Diphtheria-Tetanus Toxoids 6.7-5 LFU/0.5ML Intramuscular Injectable Administered on:20-Feb-2015 Tdap (Adacel) Lot #: [id number] Administered on:20-Feb-2015 Family History Grandmother* Name Dates [...] smoker Vital Signs Date Test Result Details 20-Feb-2015 09:04 BP Systolic 130 mm[Hg] Status: BP Diastolic 92 mm[Hg] Status: Heart Rate 60 /min Status: Respiration Rate 12 /min Status: Weight 194 lb Status: Body Mass Index Calculated 37.26 kg/m2 Status: Body Surface Area Calculated 1.85 m2 Status: Results Date Description Value Details 20-Feb-2015 10:01 CBC w/ Auto Diff 7150 Comments: Fastin hours WBC 5.3 K/uL (Better) Range: 4.5-11.0 RBC 4.98 mil/uL (Better) Range: 3.60-5.00 HGB 14.8 g/dL (Better) Range: 12.0-16.0 HCT 44.5 % (Better) Range: 36.0-48.0 MCV 89.2 fL (Better) Range: 80.0-99.0 MCH 29.6 pg (Better) Range: 27.3-32.5 MCHC 33.2 % (Better) Range: 32.0-36.0 RDW 12.3 % (Better) Range: 11.6-14.8 PLATELETS 237 K/uL (Better) Range: 150-400 MPV 7.7 fL (Better) Range: 6.0-11.0 %NEUTRO 62.9 % (Better) Range: 37.0-80.0 %LYMPHS 22.7 % (Better) Range: 13.0-50.0 %MONO 4.3 % (Better) Range: 0.0-12.0 %EOS 7.3 % (Above high threshold) Range: 0.0-7.0 %BASO 1.2 % (Better) Range: 0.0-2.5 %HAM 1.6 % (Better) Range: 0.0-5.0 NEUTRO 3.4 K/uL (Better) Range: 2.0-6.9 LYMPHS 1.2 K/uL (Better) Range: 0.6-3.4 MONOS 0.2 K/uL (Better) Range: 0.0-0.9 EOS 0.4 K/uL (Better) Range: 0.0-0.7 BASO 0.1 K/uL (Better) Range: 0.0-0.2 10:35 FREE T4 3604 Comments: Fastin hours FREE T4 1.09 ng/dL (Better) Range: 0.80-1.67 10:35 THYROID STIM. HORMONE 3602 Comments: Fastin hours THYROID STIM. HORMONE 1.715 uIU/mL (Better) Range: 0.550-4.780 Comments: No established reference ranges for infants and children <2 years of age----- 11:33 BASIC METABOLIC PROFILE 1210 Comments: Fastin hours SODIUM 139 mmol/L (Better) Range: 133-144 POTASSIUM 4.6 mmol/L (Better) Range: 3.5-5.1 CHLORIDE 101 mmol/L (Better) Range: 98-110 CARBON DIOXIDE 31.7 mmol/L (Better) Range: 23.0-33.0 ANION GAP 6 mmol/L (Better) Range: 6-16 BUN 27 mg/dL (Above high threshold) Range: 7-18 CREATININE, SERUM 1.05 mg/dL (Above high threshold) Range: 0.55-1.02 Comments: Please note new reference ranges effective 2014.----- EST GFR, >60 ml/min (Better) Range: >60 EST GFR, NON-AFR [place] 53 ml/min (Below low threshold) Range: >60 Comments: EST GFR is reported in ml/min per 1.73 m2 of body surface area. For -[place], please multiple result by 1.2.----- BUN:CREATININE RATIO 26 (Better) GLUCOSE 92 mg/dL (Better) Range: 70-100 CALCIUM 8.6 mg/dL (Better) Range: 8.5-10.1 11:33 LIPID PROFILE 1184 Comments: Fastin hours CHOLESTEROL 185 mg/dL (Better) Range: <200 TRIGLYCERIDES 90 mg/dL (Better) Range: 30-200 HDL Cholesterol 59 mg/dL (Better) Range: >39 NON HDL CHOLESTEROL 126 (Better) CARDIAC RSK FACTOR 3.1 units (Below low threshold) Range: 4.4-5.0 LDL - CALCULATED 108 mg/dL (Better) Range: 0-130 11:33 LIVER PROFILE 1215 Comments: Fastin hours ALK PHOSPHATASE 51 U/L (Better) Range: 46-116 TOTAL BILIRUBIN 0.30 mg/dL (Better) Range: 0.20-1.00 DIRECT BILIRUBIN 0.10 mg/dL (Better) Range: 0.00-0.20 AST 15 U/L (Better) Range: 8-35 ALT 25 U/L (Better) Range: 14-59 Comments: Please note new reference ranges. Effective 07/28/2014.----- ALBUMIN 3.5 g/dL (Better) Range: 3.4-5.0 TOTAL PROTEIN 6.9 g/dL (Better) Range: 6.4-8.2 Plan of Care Planned Observations* Name Dates Details Planned Goals not documented Goal Planned Encounters* Appointment; Provider: Ana Laura Shah On 21-Aug-2015 09:00 Instructions * Instructions not documented Encounters Appointment; Ana Laura Shah Diagnosis: Problem not documented On 20-Feb-2015 09:00 [...]
--- OUTSIDE RECORDS SUMMARY | 2016-07-31 10:32 | XMS REPORT | Summary of Care ---
Author Author Ana Laura Shah M.D. Organization Unknown Address [address] [place], [place] [id number] Phone Unavailable Care Team Providers Care Rn Complex Care Name Role Phone Ana Laura Shah M.D. Unavailable Unavailable Yeimy Shah PP Unavailable Functional Status Functional Status Health Issues* Name Dates Details Functional status health issues are not documented Status: Cognitive Status Health Issues* Name Dates Details Cognitive status health issues are not documented Status: Problems Name Dates Details Eyes swollen (379.92, H57.8) Status: Active Atrophic, spots skin (701.3, L90.6) Status: Active SOB (shortness of breath) (786.05, R06.02) Status: Active History Of Hypercholesterolemia (V12.29, Z86.39) Status: Resolved HTN (hypertension) (401.9, I10) Status: Active Depression (311, F32.9) Status: Active Medications Name [...] 2 Ana Laura Shah M.D.* Started 16-Feb-2014 Fqbvir53 ML Bottle Losartan Potassium 50 MG Oral [...] Name Dates Details History of Anxiety (300.00, F41.1) Status: Resolved History of glaucoma (V12.49, Z86.69) Status: Resolved History Of Hypercholesterolemia (V12.29, Z86.39) Status: Resolved History of hypertension (V12.59, Z86.79) Status: Resolved Procedures Procedure Dates Details History of Tonsillectomy With Adenoidectomy History of Section History of Cataract Surgery History of Tubal Ligation History of Adrenal Gland History of Breast Surgery Lumpectomy BASIC METABOLIC PROFILE 1210 Ordered: CBC w/ Auto Diff 7150 Ordered: FREE T4 3604 Ordered: LIVER PROFILE 1215 Ordered: THYROID STIM. HORMONE 3602 Ordered: Immunization Name Dates Details Immunizations not documented [...] smoker Vital Signs Date Test Result Details 10:44 BP Systolic 130 mm[Hg] Status: BP Diastolic 88 mm[Hg] Status: Heart Rate 76 /min Status: Respiration Rate 16 /min Status: Weight 192.6 lb Status: Body Mass Index Calculated 37 kg/m2 Status: Body Surface Area Calculated 1.85 m2 Status: Results Date Description Value Details Results not documented Plan of Care Planned Observations* Name Dates Details Planned Goals not documented Goal Planned Encounters* Appointment; Provider: Ana Laura Shah On 25-Apr-2015 10:45 * Appointment; Provider: Ana Laura Shah On 14-Feb-2015 09:00 Instructions * Instructions not documented Encounters Appointment; Ana Laura Shah Diagnosis: Problem not documented On 10:45 Appointment; Ana Laura Shah Encounter Diagnosis: Problem not documented On 26-May-2014 08:15 Appointment; Ana Laura Shah Diagnosis: Problem not documented On 06-Apr-2014 12:15 Appointment; Ana Laura Shah Diagnosis: Problem not documented On 03-Mar-2014 12:45 Appointment; Ana Laura Shah Encounter Diagnosis: Problem not documented On 23-Feb-2014 12:00 Appointment; Ana Laura Shah Diagnosis: Problem not documented On 08-Feb-2014 14:00
--- OUTSIDE RECORDS SUMMARY | 2016-07-31 10:32 | XMS REPORT | Summary of Care ---
Author Author Pablo Medina, Ana Laura Organization Unknown Address [address] [place], [place] [address] Phone Unavailable Care Team Providers Care Spanish Translator Name Role Phone Ana Laura Shah M.D. Unavailable Unavailable Willian Ty M.D. Unavailable Unavailable Yeimy Shah Unavailable Unavailable Unavailable Unavailable Functional Status Name Dates Details Functional status health issues are not documented Status: Name Dates Details Cognitive status health issues are not documented Status: Problems Name Dates Details Dehydration (276.51, E86.0) Status: Active Depression (311, F32.9) Status: Active History of hypercholesterolemia (V12.29, Z86.39) Status: Resolved Non smoker (V49.89, Z78.9) Status: Active Encounter for screening for malignant neoplasm of colon (V76.51, Z12.11) Status: Active Asthmatic bronchitis (493.90, J45.909) Status: Active Hyperlipidemia (272.4, E78.5) Status: Active HTN (hypertension) (401.9, I10) Status: Active Colon polyp (211.3, K63.5) Status: Active Medications Name Dates Details Multiple [...] every day * Quantity: 30 Refills: 3 Shah M.D., Ana Laura * Start 21-Aug-2015 Active Anucort-HC 25 MG Rectal Suppository INSERT 1 SUPPOSITORY RECTALLY 2 TIMES DAILY. * Quantity: 20 Refills: 0 Shah M.D., Ana Laura * Start 21-Aug-2015 Active Fluticasone Propionate 50 MCG/ACT Nasal Suspension USE 1 SPRAY IN EACH NOSTRIL ONCE DAILY. * Quantity: 3 Refills: 3 Shah M.D., Ana Laura * Start 21-Aug-2015 Active PEG-3350/Electrolytes 236 GM Oral Solution Reconstituted MIX AND DRINK DIRECTED PER COLONOSCOPY INSTRUCTIONS. * Quantity: 1 Refills: 0 Karson Allen.Lamonte, Willian * Start 22-Aug-2015 Active 4000 ML Bottle Dulera 100-5 MCG/ACT Inhalation Aerosol INHALE 2 PUFFS TWICE DAILY. * Quantity: 1 Refills: 1 Shah M.D., Ana Laura * Start 18-Jan-2016 Active 13 GM Inhaler Allergies and Adverse Reactions Name [...] INJ on: 20-Feb-2015 Tdap (Adacel) Lot #: [id number] on: 20-Feb-2015 Family History Name Dates Details [...] smoker Vital Signs Date Test Result Details No Known Vitals to report Results Date Description Value Details Results not documented Plan of Care Name Dates Details Planned Observations Planned Goals not documented Planned Encounters Appointment; Provider: Ana Laura Shah M.D. On 22-Feb-2016 09:30 Instructions Name Dates Details Instructions not documented [...]
--- OUTSIDE RECORDS SUMMARY | 2016-07-31 10:32 | XMS REPORT | Summary of Care ---
Author Author Ana Laura Shah M.D. Organization Unknown Address [address] [place], [place] [id number] Phone Unavailable Care Team Providers Care Energy Operations Vice President Name Role Phone Ana Laura Shah M.D. Unavailable Unavailable Ana Laura Shah PP Unavailable Unavailable Unavailable Functional Status [...] Status: Active Dehydration (276.51, E86.0) Status: Active Cough (786.2, R05) Status: Active Shortness of breath (786.05, R06.02) Status: Active Medications Name Dates [...] * Quantity: 1 Refills: 0 Ana Laura hSah M.D.* Started 08-Feb-2014 ActiveErythromycin 2 % External Solution APPLY SPARINGLY ONCE OR TWICE DAILY NEEDED. * Quantity: 1 Refills: 2 Ana Laura Shah M.D.* Started 16-Feb-2014 Rtcnjo51 ML Bottle Losartan Potassium 50 MG Oral [...] Adrenal Gland History of Breast Surgery Lumpectomy D - DIMER 7505 Ordered:20-Apr-2015 Immunization Name Dates Details Zoster (Zostavax) Administered on:02-Mar-2013 Diphtheria-Tetanus Toxoids 6.7-5 LFU/0.5ML Intramuscular Injectable Administered on:20-Feb-2015 Tdap (Adacel) Lot #: [id number] Administered on:20-Feb-2015 Family History Grandmother* Name Dates [...] smoker Vital Signs Date Test Result Details 20-Apr-2015 09:02 BP Systolic 155 mm[Hg] Status: BP Diastolic 84 mm[Hg] Status: Temperature 97.9 f Status: Heart Rate 83 /min Status: Weight 188 lb Status: O2 SAT 92 % Status: Body Mass Index Calculated 36.11 kg/m2 Status: Body Surface Area Calculated 1.83 m2 Status: Results Date Description Value Details 20-Apr-2015 09:54 CBC w/ Auto Diff 7150 Comments: Items were attached to this order: Extra Tube WBC 5.2 K/uL (Better) Range: 4.5-11.0 RBC 4.91 mil/uL (Better) Range: 3.60-5.00 HGB 14.3 g/dL (Better) Range: 12.0-16.0 HCT 43.5 % (Better) Range: 36.0-48.0 MCV 88.6 fL (Better) Range: 80.0-99.0 MCH 29.2 pg (Better) Range: 27.3-32.5 MCHC 32.9 % (Better) Range: 32.0-36.0 RDW 12.6 % (Better) Range: 11.6-14.8 PLATELETS 189 K/uL (Better) Range: 150-400 MPV 7.0 fL (Better) Range: 6.0-11.0 %NEUTRO 57.8 % (Better) Range: 37.0-80.0 %LYMPHS 19.8 % (Better) Range: 13.0-50.0 %MONO 4.9 % (Better) Range: 0.0-12.0 %EOS 14.0 % (Above high threshold) Range: 0.0-7.0 %BASO 1.1 % (Better) Range: 0.0-2.5 %HAM 2.3 % (Better) Range: 0.0-5.0 NEUTRO 3.0 K/uL (Better) Range: 2.0-6.9 LYMPHS 1.0 K/uL (Better) Range: 0.6-3.4 MONOS 0.3 K/uL (Better) Range: 0.0-0.9 EOS 0.7 K/uL (Better) Range: 0.0-0.7 BASO 0.1 K/uL (Better) Range: 0.0-0.2 10:08 BNP 3103 Comments: Items were attached to this order: Extra Tube BNP 18.2 pg/mL (Better) Range: 0.0-100.0 10:10 XRay CHEST-PA & LAT Comments: Exam Date: 04/20/2015 09: 35Dictation Date: 04/20/2015 10:10 X CHEST PA & LAT (Better) 10:10 Comprehensive Metabolic Panel 1212 Comments: Items were attached to this order: Extra Tube SODIUM 139 mmol/L (Better) Range: 133-144 POTASSIUM 4.0 mmol/L (Better) Range: 3.5-5.1 CHLORIDE 102 mmol/L (Better) Range: 98-110 CARBON DIOXIDE 31.6 mmol/L (Better) Range: 23.0-33.0 ANION GAP 5 mmol/L (Below low threshold) Range: 6-16 BUN 19 mg/dL (Above high threshold) Range: 7-18 CREATININE, SERUM 0.90 mg/dL (Better) Range: 0.55-1.02 Comments: Please note new reference ranges effective 2014.----- BUN:CREATININE RATIO 21 (Better) EST GFR, >60 ml/min (Better) Range: >60 EST GFR, NON-AFR VINCENTIAN >60 ml/min (Better) Range: >60 Comments: EST GFR is reported in ml/min per 1.73 m2 of body surface area. For -Cape Verdean, please multiple result by 1.2.----- GLUCOSE 100 mg/dL (Better) Range: 70-100 ALK PHOSPHATASE 51 U/L (Better) Range: 46-116 TOTAL BILIRUBIN 0.40 mg/dL (Better) Range: 0.20-1.00 AST 19 U/L (Better) Range: 8-35 ALT 32 U/L (Better) Range: 14-59 Comments: Please note new reference ranges. Effective 07/28/2014.----- ALBUMIN 3.6 g/dL (Better) Range: 3.4-5.0 TOTAL PROTEIN 6.9 g/dL (Better) Range: 6.4-8.2 A/G RATIO 1.1 units (Better) Range: 1.0-1.8 CALCIUM 8.5 mg/dL (Better) Range: 8.5-10.1 Plan of Care Planned Observations* Name Dates Details Planned Goals not documented Goal Planned Encounters* Appointment; Provider: Ana Laura Shah On 21-Aug-2015 09:00 Instructions * Instructions not documented Encounters Appointment; Ana Laura Shah Diagnosis: Problem not documented On 20-Apr-2015 08:40 Appointment; Ana Laura Shah Diagnosis: Problem not documented On 20-Feb-2015 09:00 Appointment; Ana Laura Shah Diagnosis: Problem not documented On 10:45 Appointment; Ana Laura Shah Diagnosis: Problem not documented On 26-May-2014 08:15 Appointment; Ana Laura Shah Diagnosis: Problem not documented On 06-Apr-2014 12:15 Appointment; Ana Laura Shah Diagnosis: Problem not documented On 03-Mar-2014 12:45 Appointment; Ana Laura Shah Encounter Diagnosis: Problem not documented On 23-Feb-2014 12:00 Appointment; Ana Laura Shah Diagnosis: Problem not documented On 08-Feb-2014 14:00
--- OUTSIDE RECORDS SUMMARY | 2016-07-31 10:32 | XMS REPORT | Summary of Care ---
Author Author Rubens Medina, T. Karey Organization Unknown Address [address] [place], [place] [id number] Phone Unavailable Care Team Providers Care College Instructor Name Role Phone Pablo Medina, Ana Laura [...] Shortness of breath (786.05, R06.02) Status: Active Non smoker (V49.89, Z78.9) Status: Active Encounter for screening for malignant neoplasm of colon (V76.51, Z12.11) Status: Active Palpitation (785.1, R00.2) Status: Active Medications Name Dates Details Multiple [...] 2 Ana Laura Shah M.D.* Started 16-Feb-2014 Ovluus34 ML Bottle ProAir HFA 108 (90 Base) [...] Refills: 0 Willian Ty M.D.* Started 22-Aug-2015 [id number] ML Bottle Allergies and Adverse Reactions Name [...] Injectable Administered on:20-Feb-2015 Tdap (Adacel) Lot #: [id number] Administered on:20-Feb-2015 Family History Grandmother* Name Dates [...] ml/min (Better) Range: >60 EST GFR, NON-AFR PRYDEINIG 51 ml/min (Below low threshold) Range: >60 Comments: EST GFR is reported in ml/min per 1.73 m2 of body surface area. For -Kittitian, please multiple result by 1.2.----- GLUCOSE 97 [...]
--- OUTSIDE RECORDS SUMMARY | 2016-07-31 10:32 | XMS REPORT | Summary of Care ---
Author Author Ana Laura Shah M.D. Organization Unknown Address [address] [place], [place] [id number] Phone Unavailable Care Team Providers Care Associate Technician Name Role Phone Ana Laura Shah M.D. [...] 2 Ana Laura Shah M.D.* Started 16-Feb-2014 Aopkvw10 ML Bottle Losartan Potassium 100 MG Oral [...] 0 Ana Laura Shah M.D.* Started 21-Aug-2015 Active [...] Surgery Lumpectomy CBC w/ Auto Diff 7150 Ordered:21-Aug-2015 Comprehensive Metabolic Panel 1212 Ordered:21-Aug-2015 FREE T4 3604 Ordered:21-Aug-2015 THYROID STIM. HORMONE 3602 Ordered:21-Aug-2015 XRay CHEST-PA & LAT Ordered:21-Aug-2015 Immunization Name Dates Details Zoster (Zostavax) Administered on:02-Mar-2013 Diphtheria-Tetanus Toxoids 6.7-5 LFU/0.5ML Intramuscular Injectable Administered on:20-Feb-2015 Tdap (Adacel) Lot #: [id number] Administered on:20-Feb-2015 Family History Grandmother* Name Dates [...] Dates Details Planned Goals not documented Goal Instructions * Instructions not documented Encounters Appointment; [...]
--- OUTSIDE RECORDS SUMMARY | 2016-07-31 10:32 | XMS REPORT | Summary of Care ---
Author Author Ana Laura Shah M.D. Organization Unknown Address [address] [place], [place] [phone] Phone Unavailable Care Team Providers Care Sales Professional Name Role Phone Ana Laura Shah M.D. [...] Active Asthmatic bronchitis (493.90, J45.909) Status: Active Medications Name Dates Details Multiple [...] 2 Ana Laura Shah M.D.* Started 16-Feb-2014 Yeodgl59 ML Bottle Losartan Potassium 50 MG Oral Tablet TAKE 1 TABLET DAILY. * Quantity: 30 Refills: 6 Ana Laura Shah M.D.* Started 26-May-2014 ActiveProAir HFA 108 (90 Base) MCG/ACT Inhalation Aerosol Solution INHALE 1 TO 2 PUFFS EVERY 4 TO 6 HOURS NEEDED. * Quantity: 1 Refills: 3 Ana Laura Shah M.D.* Started 26-May-2014 Active8.5 GM Inhaler Levofloxacin 500 MG Oral Tablet TAKE ONE TABLET BY MOUTH EVERY DAY FOR 7 DAYS * Quantity: 7 Refills: 0 Ana Laura Shah M.D.* Started 20-Apr-2015 ActivePredniSONE 10 MG Oral Tablet 3 pills for 3 days, 2 pills for 3 days, 1 pill for 3 days then stop * Quantity: 18 Refills: 0 Ana Laura Shah M.D.* Started 20-Apr-2015 Active Allergies and Adverse Reactions Name Dates [...] documented Immunization Name Dates Details Zoster (Zostavax) Administered on:02-Mar-2013 Diphtheria-Tetanus Toxoids 6.7-5 LFU/0.5ML Intramuscular Injectable Administered on:20-Feb-2015 Tdap (Adacel) Lot #: [id number] Administered on:20-Feb-2015 Family History Grandmother* Name Dates [...] 04/20/2015 10:10 [facility] [id number] (X-RAY)PATIENT OF DR. SHAH BD: 1950 SECONDARY 04/20/15 X CHEST PA & LAT INDICATION: R05: COUGHCOMPARISON: None (Better) 10:10 Comprehensive Metabolic Panel 1212 Comments: [...] ml/min (Better) Range: >60 EST GFR, NON-AFR HUNGARIAN >60 ml/min (Better) Range: >60 Comments: EST GFR is reported in ml/min per 1.73 m2 of body surface area. For -Macedonian, please multiple result by 1.2.----- GLUCOSE 100 [...] 1.0-1.8 CALCIUM 8.5 mg/dL (Better) Range: 8.5-10.1 10:59 D - DIMER 7505 D-DIMER 0.39 ug/mL (Above high threshold) Range: 0.00-0.26 Comments: For patients with low clinical probability of PE of DVT, D-Dimer results of 0.25 ug/mL and less have an excellent negative predictive value in excluding a diagnosis of acute PE or EVT. However, a thromboembolic event cannot be excluded when D-Dimer values are greater than 0.25 ug/mL.----- Plan of Care Planned Observations* Name Dates [...]
[2016-07-31 10:33] VITALS: Ht 154.9 cm; Wt 88.7 kg
--- OUTSIDE RECORDS SUMMARY | 2016-07-31 10:33 | XMS REPORT | Summary of Care ---
Author Author Ana Laura Shah M.D. Organization Unknown Address [address] [place], [place] [phone] Phone Unavailable Care Team Providers Care Esthetician Makeup Artist Name Role Phone Ana Laura Shah M.D. [...] Scar of knee (709.2, L90.5) Status: Active Medications Name Dates Details Multiple [...] 2 Ana Laura Shah M.D.* Started 16-Feb-2014 Nibnfp70 ML Bottle Losartan Potassium 50 MG Oral [...] Breast Surgery Lumpectomy BASIC METABOLIC PROFILE 1210 Ordered:20-Feb-2015 CBC w/ Auto Diff 7150 Ordered:20-Feb-2015 LIPID PROFILE 1184 Ordered:20-Feb-2015 FREE T4 3604 Ordered:20-Feb-2015 LIVER PROFILE 1215 Ordered:20-Feb-2015 THYROID STIM. HORMONE 3602 Ordered:20-Feb-2015 Immunization Name Dates Details Zoster (Zostavax) Administered on:02-Mar-2013 Diphtheria-Tetanus Toxoids 6.7-5 LFU/0.5ML Intramuscular Injectable Administered on:20-Feb-2015 Family History Grandmother* Name Dates [...]
--- OUTSIDE RECORDS SUMMARY | 2016-07-31 10:33 | XMS REPORT | Summary of Care ---
Author Author Rubens Medina, T. Karey Organization Unknown Address [address] [place], [place] [phone] Phone Unavailable Care Team Providers Care Extension Course Counselor Name Role Phone Pablo Medina, Ana Laura [...] neoplasm of colon (V76.51, Z12.11) Status: Active Shortness of breath (786.05, R06.02) Status: Active Palpitation (785.1, R00.2) Status: Active Asthmatic bronchitis (493.90, J45.909) Status: Active Hyperlipidemia (272.4, E78.5) Status: Active HTN (hypertension) (401.9, I10) Status: Active Anal lesion (569.49, K62.9) Status: Active Medications Name Dates Details Multiple [...] 2 Ana Laura Shah M.D.* Started 16-Feb-2014 Klnnmi53 ML Bottle ProAir HFA 108 (90 Base) [...] Refills: 0 Willian Ty M.D.* Started 22-Aug-2015 Oospow4405 ML Bottle Allergies and Adverse Reactions Name [...] Dx Ordered:21-Aug-2015 Cardiology Precert (within facility) Ordered:29-Aug-2015 CP Echo Ordered:04-Sep-2015 CP Stress Echo Ordered:04-Sep-2015 XRay CHEST-PA & LAT Ordered:21-Aug-2015 Immunization Name Dates Details Zoster (Zostavax) Administered on:02-Mar-2013 Diphtheria-Tetanus Toxoids 6.7-5 LFU/0.5ML Intramuscular Injectable Administered on:20-Feb-2015 Tdap (Adacel) Lot #: [id number] Administered on:20-Feb-2015 Family History Grandmother* Name Dates [...] ml/min (Better) Range: >60 EST GFR, NON-AFR ZAMBIAN 51 ml/min (Below low threshold) Range: >60 Comments: EST GFR is reported in ml/min per 1.73 m2 of body surface area. For -Jamaican, please multiple result by 1.2.----- GLUCOSE 97 [...] 14:46 ECG/ EKG (Specialists) Electro CardioGram (Better) 04-Sep-2015 09:56 ECG/ EKG CP - Electro CardioGram ECG/ EKG Cardiology Read (Better) 10:49 CP Echo Y Linked PDF Report Available for Review by Clicking ImageLink Button ( Better) 10:58 CP Stress Echo Y Linked PDF Report Available for Review by Clicking ImageLink Button ( Better) Plan of Care Planned Observations* Name Dates [...]
--- OUTSIDE RECORDS SUMMARY | 2016-07-31 10:33 | XMS REPORT | Summary of Care ---
Author Author Ana Laura Shah M.D. Organization Unknown Address [address] [place], [place] [phone] Phone Unavailable Care Team Providers Care Warehouse Helper Name Role Phone Ana Laura Shah M.D. [...] Status: Active Cough (786.2, R05) Status: Active Medications Name Dates Details Multiple [...] 2 Ana Laura Shah M.D.* Started 16-Feb-2014 Epojaj40 ML Bottle Losartan Potassium 50 MG Oral [...] Breast Surgery Lumpectomy Comprehensive Metabolic Panel 1212 Ordered:20-Apr-2015 CBC w/ Auto Diff 7150 Ordered:20-Apr-2015 BNP 3103 Ordered:20-Apr-2015 XRay CHEST-PA & LAT Ordered:20-Apr-2015 Immunization Name Dates Details Zoster (Zostavax) Administered on:02-Mar-2013 Diphtheria-Tetanus Toxoids 6.7-5 LFU/0.5ML Intramuscular Injectable Administered on:20-Feb-2015 Tdap (Adacel) Lot #: [id number] Administered on:20-Feb-2015 Family History Grandmother* Name Dates [...]
--- OUTSIDE RECORDS SUMMARY | 2016-07-31 10:33 | XMS REPORT | Summary of Care ---
Author Author Ana Laura Shah M.D. Organization Unknown Address [address] [place], [place] [phone] Phone Unavailable Care Team Providers Care Hand Umbrella Tipper Name Role Phone Ana Laura Shah M.D. [...] Status: Active Dehydration (276.51, E86.0) Status: Active Medications Name Dates Details Multiple [...] 2 Ana Laura Shah M.D.* Started 16-Feb-2014 Dodfds21 ML Bottle Losartan Potassium 50 MG Oral [...] Breast Surgery Lumpectomy BASIC METABOLIC PROFILE 1210 Ordered:21-Feb-2015 MAMMOGRAM-SCREENING Ordered:20-Feb-2015 Immunization Name Dates Details Zoster (Zostavax) Administered on:02-Mar-2013 Diphtheria-Tetanus Toxoids 6.7-5 LFU/0.5ML Intramuscular Injectable Administered on:20-Feb-2015 Tdap (Adacel) Lot #: [id number] Administered on:20-Feb-2015 Family History Grandmother* Name Dates [...] ml/min (Better) Range: >60 EST GFR, NON-AFR GREENLANDIC 53 ml/min (Below low threshold) Range: >60 Comments: EST GFR is reported in ml/min per 1.73 m2 of body surface area. For -Taiwanese, please multiple result by 1.2.----- BUN:CREATININE RATIO [...]
--- OUTSIDE RECORDS SUMMARY | 2016-07-31 10:33 | XMS REPORT | Summary of Care ---
Author Author Ana Laura Shah M.D. Organization Unknown Address [address] [place], [place] [phone] Phone Unavailable Care Team Providers Care Associate Entertainment Editor Name Role Phone Ana Laura Shah M.D. [...] 2 Ana Laura Shah M.D.* Started 16-Feb-2014 Yabnil52 ML Bottle Losartan Potassium 50 MG Oral [...] Injectable Administered on:20-Feb-2015 Tdap (Adacel) Lot #: [id number] Administered on:20-Feb-2015 Family History Grandmother* Name Dates [...] ml/min (Better) Range: >60 EST GFR, NON-AFR CYPRIOT >60 ml/min (Better) Range: >60 Comments: EST GFR is reported in ml/min per 1.73 m2 of body surface area. For -Prydeinig, please multiple result by 1.2.----- GLUCOSE 100 [...]
--- OUTSIDE RECORDS SUMMARY | 2016-07-31 10:33 | XMS REPORT | Summary of Care ---
Author Author Rubens Medina, T. Karey Organization Unknown Address [address] [place], [place] [id number] Phone Unavailable Care Team Providers Care Station Cook Name Role Phone Pablo Medina, Ana Laura [...] Status: Active Palpitation (785.1, R00.2) Status: Active Non smoker (V49.89, Z78.9) Status: Active Encounter for screening for malignant neoplasm of colon (V76.51, Z12.11) Status: Active Medications Name Dates Details Multiple [...] 2 Ana Laura Shah M.D.* Started 16-Feb-2014 Advvth51 ML Bottle ProAir HFA 108 (90 Base) [...] Refills: 0 Willian Ty M.D.* Started 22-Aug-2015 Vyvawn8672 ML Bottle Allergies and Adverse Reactions Name [...] EKG Pendin21-Aug-2015 Colonoscopy- Screening or Dx Ordered:21-Aug-2015 XRay CHEST-PA & LAT Ordered:21-Aug-2015 Immunization Name Dates Details Zoster (Zostavax) Administered on:02-Mar-2013 Diphtheria-Tetanus Toxoids 6.7-5 LFU/0.5ML Intramuscular Injectable Administered on:20-Feb-2015 Tdap (Adacel) Lot #: [id number] Administered on:20-Feb-2015 Family History Grandmother* Name Dates [...] ml/min (Better) Range: >60 EST GFR, NON-AFR PANAMANIAN 51 ml/min (Below low threshold) Range: >60 Comments: EST GFR is reported in ml/min per 1.73 m2 of body surface area. For -Salvadorean, please multiple result by 1.2.----- GLUCOSE 97 [...]
--- OUTSIDE RECORDS SUMMARY | 2016-07-31 10:33 | XMS REPORT | Summary of Care ---
Author Author Ana Laura Shah M.D. Organization Unknown Address [address] [place], [place] [phone] Phone Unavailable Care Team Providers Care Digital Traffic Coordinator Name Role Phone Ana Laura Shah M.D. Unavailable Unavailable Yeimy Shah PP Unavailable Functional Status Functional Status Health Issues* Name Dates Details Functional status health issues are not documented Status: Cognitive Status Health Issues* Name Dates Details Cognitive status health issues are not documented Status: Problems Name Dates Details History Of Hypercholesterolemia (V12.29, Z86.39) Status: Resolved [...] 2 Ana Laura Shah M.D.* Started 16-Feb-2014 Rwvcdt04 ML Bottle Losartan Potassium 50 MG Oral [...] Encounters* Appointment; Provider: Ana Laura Shah On 20-Feb-2015 09:00 Instructions * Instructions not documented Encounters [...]
[2016-07-31 10:34] VITALS: BP 127/63; PULSE 69; RESP 15; TEMP 97.9; O2SAT 92
--- OUTSIDE RECORDS SUMMARY | 2016-07-31 10:34 | XMS REPORT | Summary of Care ---
Author Author Ana Laura Shah M.D. Organization Unknown Address [address] [place], [place] [id number] Phone Unavailable Care Team Providers Care Pattern Carrier Name Role Phone Ana Laura Shah M.D. [...] TAKE 1 TABLET DAILY. Quantity: 30 Shah M.D.Ana Laura * Start 08-Feb-2014 Active Pravastatin Sodium [...] daily * Quantity: 1.5 Refills: 0 Shah M.D.Ana Laura * Start 08-Feb-2014 Active Restasis 0.05 % Ophthalmic Emulsion INSTILL 1 DROP IN EACH EYE TWICE DAILY NEEDED * Quantity: 1 Refills: 0 Shah M.D.Ana Laura * Start 08-Feb-2014 Active Erythromycin 2 % External Solution APPLY SPARINGLY ONCE OR TWICE DAILY NEEDED. * Quantity: 1 Refills: 2 Shah M.D.Ana Laura * Start 16-Feb-2014 Active 60 ML Bottle ProAir HFA 108 (90 Base) MCG/ACT Inhalation Aerosol Solution INHALE 1 TO 2 PUFFS EVERY 4 TO 6 HOURS NEEDED. * Quantity: 1 Refills: 5 Shah Tiffany.D., Ana Laura * Start 26-May-2014 Active 8.5 [...] M.D., Ana Laura * Start 21-Aug-2015 Active Dulera 100-5 MCG/ACT Inhalation Aerosol INHALE 2 PUFFS TWICE DAILY. * Quantity: 1 Refills: 1 Shah Tiffany.D., Ana Laura * Start 18-Jan-2016 Active 13 [...] INJ on: 20-Feb-2015 Tdap (Adacel) Lot #: [id number] on: 20-Feb-2015 Family History Name Dates Details [...] Appointment; Provider: Ana Laura Shah M.D. On 19-Jul-2016 08:45 Instructions Name Dates Details Instructions not documented [...]
--- OUTSIDE RECORDS SUMMARY | 2016-07-31 10:34 | XMS REPORT | Summary of Care ---
Author Author Ana Laura Shah M.D. Organization Unknown Address [address] [place], [place] [id number] Phone Unavailable Care Team Providers Care Psychiatric Nursing Aide Name Role Phone Ana Laura Shah M.D. [...] Quantity: 18 Refills: 0 Pablo Medina Ana Laura * Start 22-Feb-2016 Active Allergies [...] INJ on: 20-Feb-2015 Tdap (Adacel) Lot #: [id number] on: 20-Feb-2015 Family History Name Dates Details [...] >60 ml/min Range: >60 EST GFR, NON-AFR GUAMANIAN 57 ml/min (Below low threshold) Range: >60 [...] Appointment; Provider: Ana Laura Shah M.D. On 12-Mar-2016 09:45 Interventions Provided Medication Changes* PredniSONE 10 MG Oral Tablet - Start Labs/Procedures/Imaging* CBC w/ Auto Diff 7150; Done: Feb 22 2016 10:01AM * Comprehensive Metabolic Panel 1212; Done: Feb 22 2016 10:01AM * FREE T4 3604; Done: Feb 22 2016 10:01AM * LIPID PROFILE 1184; Done: Feb 22 2016 10:01AM * THYROID STIM. HORMONE 3602; Done: Feb 22 2016 10:01AM Instructions Name Dates Details Instructions not documented [...]
--- OUTSIDE RECORDS SUMMARY | 2016-07-31 10:34 | XMS REPORT | Summary of Care ---
Author Author Karson Medina, Willian Ochoa Unknown Address [address] [place], [place] [phone] Phone Unavailable Care Team Providers Care Printing Sign Machine Operator Name Role Phone Ana Laura Shah M.D. Unavailable Unavailable Willian Ty M.D. Unavailable Unavailable Yeimy Shah PP Unavailable [...] Active Anal lesion (569.49, K62.9) Status: Active Anal itching (698.0, L29.0) Status: Active Colon polyp (211.3, K63.5) Status: [...] 2 Ana Laura Shah M.D.* Started 16-Feb-2014 [id number] ML Bottle ProAir HFA 108 (90 Base) [...] Refills: 0 Willian Ty M.D.* Started 22-Aug-2015 [id number] ML Bottle Allergies and Adverse Reactions Name [...] of Breast Surgery Lumpectomy ECG/ EKG Pendin21-Aug-2015 Cardiology Precert (within facility) Ordered:29-Aug-2015 CP Echo Ordered:04-Sep-2015 CP Stress Echo Ordered:04-Sep-2015 XRay CHEST-PA & LAT Ordered:21-Aug-2015 Immunization Name Dates Details Zoster (Zostavax) Administered on:02-Mar-2013 Diphtheria-Tetanus Toxoids 6.7-5 LFU/0.5ML Intramuscular Injectable Administered on:20-Feb-2015 Tdap (Adacel) Lot #: [id number] Administered on:20-Feb-2015 Family History Grandmother* Name Dates [...] ml/min (Better) Range: >60 EST GFR, NON-AFR BURMESE 51 ml/min (Below low threshold) Range: >60 Comments: EST GFR is reported in ml/min per 1.73 m2 of body surface area. For -Ethiopian, please multiple result by 1.2.----- GLUCOSE 97 [...] Review by Clicking ImageLink Button ( Better) 05-Sep-2015 11:29 Colonoscopy Abnormal- Polyps (Better) Range: 0 Plan of Care Planned Observations* Name Dates Details Planned Goals not documented Goal Planned Encounters* Appointment; Provider: Ana Laura Shah On 22-Feb-2016 09:30 Instructions * Instructions not documented Encounters Appointment; Willian Ty Encounter Diagnosis: Problem not documented On 05-Sep-2015 10:30 Appointment; Esme Juarez Encounter Diagnosis: Problem not documented On 05-Sep-2015 10:00 Appointment; Vandana Art Encounter Diagnosis: Problem not [...] Problem not documented On 23-Feb-2014 12:00 Appointment; AnaL aura Shah Encounter Diagnosis: Problem not documented On 08-Feb-2014 14:00
--- OUTSIDE RECORDS SUMMARY | 2016-07-31 10:34 | XMS REPORT | Summary of Care ---
Author Author Ana Laura Shah M.D. Organization Unknown Address [address] [place], [place] [phone] Phone Unavailable Care Team Providers Care Body Press Operator Name Role Phone Ana Laura Shah [...] 1 Refills: 2 Pablo Medina Ana Laura * Start 16-Feb-2014 Active 60 [...] DAILY. * Quantity: 30 Refills: 3 Pablo Allen.Lamonte Ana Laura * Start 19-Jul-2016 Active Allergies and Adverse Reactions [...] INJ on: 20-Feb-2015 Tdap (Adacel) Lot #: [id number] on: 20-Feb-2015 Family History Name Dates Details [...] smoker Vital Signs Date Test Result Details 25-Jul-2016 10:03 BP Systolic 136 mm[Hg] Status: Comments: Location: ; Position: BP Diastolic 84 mm[Hg] Status: Comments: Location: ; Position: 19-Jul-2016 08:38 BP Systolic 148 mm[Hg] Status: Comments: Location: ; Position: BP Diastolic 80 mm[Hg] Status: Comments: Location: ; Position: Heart Rate 80 /min Status: Physical Findings 18 Status: Comments: Respiration Weight 199 lb Status: Body Mass Index Calculated 38.22 kg/m2 Status: Body Surface Area Calculated 1.87 m2 Status: Results Date Description Value Details 19-Jul-2016 09:21 ECG/ EKG Preop Electro CardioGram 09:33 XRay CHEST-PA & LAT Comments: Exam [...] NEGATIVE Range: Negative LEUK NEGATIVE Range: Negative 17:20 Comprehensive Metabolic Panel 1212 SODIUM 140 mmol/L Range: 133-144 POTASSIUM 4.2 mmol/L Range: 3.5-5.1 CHLORIDE 106 mmol/L Range: 98-110 CARBON DIOXIDE 29.9 mmol/L Range: 23.0-33.0 ANION GAP 4 mmol/L (Below low threshold) Range: 6-16 BUN 20 mg/dL (Above high threshold) Range: 7-18 CREATININE, SERUM 0.98 mg/dL Range: 0.55-1.02 BUN:CREATININE RATIO 20 EST GFR, >60 ml/min Range: >60 EST GFR, NON-AFR BELGIAN 57 ml/min (Below low threshold) Range: >60 Comments: EST GFR is reported in ml/min per 1.73 m2 of body surface area. ----- GLUCOSE 71 mg/dL Range: 70-100 ALK PHOSPHATASE 51 U/L Range: 46-116 TOTAL BILIRUBIN 0.30 mg/dL Range: 0.20-1.00 AST 16 U/L Range: 8-35 ALT 27 U/L Range: 14-59 ALBUMIN 3.5 g/dL Range: 3.4-5.0 TOTAL PROTEIN 6.5 g/dL Range: 6.4-8.2 A/G RATIO 1.2 units Range: 1.0-1.8 CALCIUM 8.2 mg/dL (Below low threshold) Range: 8.5-10.1 Comments: Verified by Repeat Analysis----- 20-Jul-2016 14:59 Hepatitis C ( HCV) Antibody w Reflex testing [id number] Comments: [facility] performed at: [facility] [address] [place] [address] , [place], [address], , Traffic Control Signaler: ARUN Warren MD HCV Ab <0.1 s/co ratio Range: 0.0-0.9 Interpretation: Comment Comments: NegativeNot infected with HCV, unless recent infection issuspected or other evidence exists to indicate HCVinfection.- ---- 22-Jul-2016 15:43 THYROID STIM. HORMONE 3602 THYROID STIM. HORMONE 2.008 uIU/mL Range: 0.550-4.780 Comments: No established reference ranges for infants and children <2 years of age----- 15:49 FREE T4 3604 FREE T4 0.96 ng/dL Range: 0.80-1.67 25-Jul-2016 10:19 CBC w/ Auto Diff 7150 WBC 4.0 K/uL (Below low threshold) Range: 4.5-11.0 RBC 4.95 mil/uL Range: 3.60-5.00 HGB 14.9 g/dL Range: 12.0-16.0 HCT 44.8 % Range: 36.0-48.0 MCV 90.6 fL Range: 80.0-99.0 MCH 30.1 pg Range: 27.3-32.5 MCHC 33.3 % Range: 32.0-36.0 RDW 13.9 % Range: 11.6-14.8 PLATELETS 209 K/uL Range: 150-400 MPV 7.6 fL Range: 6.0-11.0 %NEUTRO 57.3 % Range: 37.0-80.0 %LYMPHS 27.2 % Range: 13.0-50.0 %MONO 4.8 % Range: 0.0-12.0 %EOS 7.4 % (Above high threshold) Range: 0.0-7.0 %BASO 1.0 % Range: 0.0-2.5 %HAM 2.2 % Range: 0.0-5.0 NEUTRO 2.3 K/uL Range: 2.0-6.9 LYMPHS 1.1 K/uL Range: 0.6-3.4 MONOS 0.2 K/uL Range: 0.0-0.9 EOS 0.3 K/uL Range: 0.0-0.7 BASO 0.0 K/uL Range: 0.0-0.2 Plan of Care Name Dates Details Planned Observations Planned Goals not documented Planned Encounters Appointment; Provider: Ana Laura Shah M.D. On 29-Aug-2016 10:30 Interventions Provided Labs/Procedures/Imaging* CBC w/ Auto Diff 7150; Done: Jul 25 2016 10:06AM Instructions Name Dates Details Instructions not documented Encounters Appointment; Ana Laura Shah M.D. Encounter Diagnosis: Problem not documented On 19-Jul-2016 08:45 Appointment; Ana Laura Shah M.D. Encounter Diagnosis: Problem not documented On 12-Mar-2016 09:45 Appointment; Ana Larua Shah M.D. Encounter Diagnosis: Problem not documented [...]
[2016-07-31] MEDS: PHENYLEPHRINE 2.5% EYE DROPS 5ml RIGHT EYE SCH ×3 (10:51→11:03)
[2016-07-31] MEDS: NEPAFENAC 0.1% EYE DROPS 3ml RIGHT EYE SCH ×3 (10:52→11:03)
[2016-07-31] MEDS: TROPICAMIDE 1% EYE DROPS 3ml RIGHT EYE SCH ×3 (10:52→11:03)
[2016-07-31] MEDS: PROPARACAINE 0.5% EYE DROPS 15ml RIGHT EYE SCH ×3 (10:52→11:03)
[2016-07-31] MEDS: MOXIFLOXACIN 0.5% EYE DROPS 3ml RIGHT EYE SCH ×3 (10:52→11:03)
[2016-07-31] MEDS: CYCLOPENTOLATE 2% EYE DROPS 2ml RIGHT EYE SCH ×3 (10:52→11:03)
--- NOTE | 2016-07-31 11:44 | ANESPREOP ---
Anesthesia Record Date and Time DATE: 07/31/16 TIME: 11:39 Pre-Op Diagnosis cataract Proposed Surgical Procedure PE WITH IOL SC NPO since: 0500 Allergies: Coded Allergies: No Known Allergies (Unverified , 07/31/16) Ht/Wt/BMI Height: 5 ' 1.00 " Weight: 88.700 kg BMI: 37.0 kg/m2 Vital Signs Date Time Temp Pulse Resp B/P Pulse Ox O2 Delivery O2 Flow Rate FiO2 07/31/16 10:34 97.9 69 15 127/63 92 Room Air Medications Inpatient Medications Current Medications Medications (Trade) Dose Ordered Sig/Loly Start Time Stop Time Status Last Admin Dose Admin Lactated Ringer's (Lactated Ringers) 1,000 ml @ 50 mls/hr Q20H 07/31/16 07:00 07/31/16 10:59 50 MLS/HR Cyclopentolate HCl (Cyclogyl 2%) 1 drop Q5M 07/31/16 16:00 07/31/16 16:11 07/31/16 11:03 1 DROP Tropicamide (Mydriacyl 1% Eye Drops) 1 drop Q5M 07/31/16 16:00 07/31/16 16:11 07/31/16 11:03 1 DROP Proparacaine HCl (Alcaine 0.5% Eye Drops) 1 drop Q5M 07/31/16 16:00 07/31/16 16:11 07/31/16 11:03 1 DROP Tetracaine HCl (Tetracaine 0.5% Eye Drops) 1 drop PRN PRN 07/31/16 16:00 Moxifloxacin HCl (Vigamox) 1 drop Q5M 07/31/16 16:00 07/31/16 16:11 07/31/16 11:03 1 DROP Nepafenac (Nevanac 0.1% Eye Drops) 1 drop Q5M 07/31/16 16:00 07/31/16 16:11 07/31/16 11:03 1 DROP Phenylephrine HCl (Dani-Synephrine 2.5% Eye Drops) 1 drop Q5M 07/31/16 16:00 07/31/16 16:11 07/31/16 11:03 1 DROP Albuterol Sulfate (Proair Respiclick) 90 Mcg Aer.pow.ba, 2 PUFF INH Q4-6HPRN, ( Reported) Last Taken: on Unknown Date & Time Cyclosporine (Restasis) 1 Each Droperette, 1 DROP BOTH EYES Q12H, (Reported) Last Taken: on Unknown Date & Time Diclofenac Sodium (Diclofenac Sodium) 2.5 Ml Drops, 1 DROP BOTH EYES TID, (Reported) Last Taken: on 07/31/16 0830 Diphenhydramine HCl (Allergy Medicine) 25 Mg Tablet, 1 TAB PO DAILY PRN for ALLERY SYMPTOMS, (Reported) Last Taken: on Unknown Date & Time Ibuprofen (Ibuprofen) 200 Mg Capsule, 2 CAP PO Q4H PRN for PAIN, (Reported) Last Taken: on Unknown Date & Time Losartan Potassium (Losartan Potassium) 100 Mg Tablet, 1 TAB PO DAILY, (Reported) Last Taken: on 07/30/16 08 Loteprednol Etabonate (Lotemax) 5 Ml Drops.susp , 1 DROP OP DAILY, (Reported) Last Taken: on 07/30/16 08 Loteprednol Etabonate (Lotemax) 3.5 Gm Oint...g., 1 DROP BOTH EYES DAILY, (Reported) Last Taken: on 07/30/16 0800 Mometasone/Formoterol (Dulera 100 Mcg/5 Mcg Inhaler) 13 Gm Hfa.aer.ad, 2 PUFF INH BID, (Reported) Last Taken: on 07/30/16 0800 Multivitamin (Multi-Day Vitamins) 1 Each Tablet , 1 TAB PO DAILY, (Reported) Last Taken: on 07/30/16 08 Paroxetine HCl (Paroxetine HCl) 20 Mg Tablet, TAB PO DAILY, (Reported) Last Taken: on 07/30/16 08 Pravastatin Sodium (Pravastatin Sodium) 10 Mg Tablet, 1 TAB PO HS, (Reported) Last Taken: on 07/30/16 0800 Currently on Beta Artis: No Medical/Surgical History Anesthesia PMH: Reports: *Hypertension, Asthma (EXERCISE INDUCED ), Depression , Hyperlipidemia, Obesity, Paresthesia, Denies: Anesthesia Reactions (NO AIRWAY ISSUES, SLOW TO WAKE), Cancer, Clotting Problems, Glaucoma, Malignant Hyperthermia, Sleep Apnea Smoking Status: Never smoker Has pt. smoked today?: No Use Chewing Tobacco?: No Second Hand Exposure: No Substance Use Type: does not use Alcohol Intake: none HX of Last Menstrual Period: UNKNOWN Past Surgical History Orthopedic Surgeries: Abdominal Surgeries: Genitourinary Surgeries: Cardiac Surgeries: Endocrine Surgeries: Yes - REMOVAL OF L ADRENAL GLAND Reproductive Surgeries: Yes - TUBAL, 1984 Neurological Surgeries: Ear Surgeries: Nose Surgeries: Throat Surgeries: Other Surgeries: Yes - LUMPECTOMY Anesthesia Adverse Reactions: FOUND none Family Hx of Anesthesia Advers: none Hx of Motion Sickness: No Pertinent Findings EKG Rhythm: Sinus Rhythm Physical Exam Respiratory: Lungs clear Cardiovascular: FOUND Regular rate, rhythm, FOUND No murmur Airway Assessment Mallampati Score: II TMD: 3 Fingerbreadths Neck Extension: Poor Teeth: Chipped Teeth/Crowns Overall Assessment: May Be Diff Intubation ASA: 3 Plan Anesthesia Plan: TIVA, LMA Discussion Discussed risks/options/alternatives of anesthesia and questions answered. Patient consents. Nursing pain assessment noted. Present: Spouse Attestation Statement Prior to the delivery of any anesthetic medication, I examined the patient, developed the plan, obtained the patient's consent and discussed the risk and benefits of the procedure with the patient/guardian. BONG MILLAN I CIRCULAR KNIFE MACHINE CUTTER Jul 31, 2016 11:44
[2016-07-31] MEDS ORDERED: PROPOFOL 200mg 20 ML IV ONE ×2 (12:51→13:32)
[2016-07-31] MEDS ORDERED: LIDOCAINE 2% (20mg/ml) 5ml PF SDV ONE (12:51)
[2016-07-31] MEDS ORDERED: FENTANYL 100mcg/2ml INJECTION ONE (12:55)
[2016-07-31 13:42] VITALS: BP 132/63; PULSE 67; RESP 12; TEMP 97; O2SAT 87
[2016-07-31 13:45] VITALS: O2SAT 95
--- NOTE | 2016-07-31 13:49 | ANESPO ---
Post-Op Note Date 07/31/16 Time: 13:48 Status Pt Participated in Evaluation: Pt participated in person Vital Signs Date Time Temp Pulse Resp B/P Pulse Ox O2 Delivery O2 Flow Rate FiO2 07/31/16 10:34 97.9 69 15 127/63 92 Room Air Respiratory Function: Airway patent, Regular respirations Cardiovascular Function: Regular pulse Mental Status: Alert/oriented Pain Level Intensity: 0 Hydration: Taking po fluids, IV infusing Complications during Recovery None apparent Post-Anesthesia Notes [email or web address]. [email or web address] Follow-Up Instructions Instructions Per Surgeon Additional Information none TAWANNA BERTRAND CRNA Jul 31, 2016 13:49
[2016-07-31 14:01] VITALS: BP 132/86; PULSE 62; RESP 15; O2SAT 96
[2016-07-31 14:15] VITALS: BP 132/59; PULSE 59; RESP 11; O2SAT 95
[2016-07-31] MEDS ORDERED: TETRACAINE 0.5% EYE DROPS 4ml BOTTLE RIGHT EYE PRN (16:00)
--- NOTE | 2016-08-05 11:33 | OPNOTEF ---
DATE OF PROCEDURE 07/31/2016 PREOPERATIVE DIAGNOSIS Cataract, right eye. POSTOPERATIVE DIAGNOSIS Cataract, right eye. PROCEDURE Phacoemulsification with implantation of 15.0 diopter intraocular lens model [id number], right eye. ANESTHESIA General monitored by Sandor Guajardo CRNA. SURGEON Gabriela Mcgregor MD PROCEDURE IN DETAIL The patient came to the [facility] and was escorted to the preanesthesia area where the appropriate monitoring, eyedrops, and topical anesthetic were administered. The patient was then taken into the operating room and placed under general anesthesia and then the eye was prepped and draped in the standard sterile manner for ophthalmic surgery. A lid speculum was placed between the lids and the eye was irrigated with 5% Povidine iodine solution, followed by copious irrigation with sterile balanced salt solution after three minutes. The eye surgery began with the initial side port incision through the peripheral clear cornea. Lidocaine preservative free 1% was injected into the anterior chamber. Viscoelastic was exchanged for aqueous. A clear cornea incision was made just anterior to the vascular arcade with a steel keratome blade. A continuous curvilinear anterior capsulorrhexis was performed, followed by hydrodissection and hydrodelineation of the cataract. The phacoemulsification tip was then inserted through the incision into the anterior chamber, and the nucleus of the cataract was emulsified. The remaining cortical material was then aspirated and the posterior capsule was cleaned and polished. A posterior chamber intraocular lens was then implanted into the capsular bag with viscoelastic support. The viscoelastic was then removed from the eye by aspiration. The clear cornea incision was inspected to ensure a water tight seal. The lid speculum was removed. Vigamox, Nevanac and Brimonidine eyedrops were instilled onto the eye and an eye shield was taped over the eye. The general anesthesia was reversed. Once the patient was extubated, she went to the recovery area and was dismissed to the responsible alliance party with postoperative instructions and a planned follow-up visit. ALLISON
== END 2016-07-31 14:30 | disposition home or self-care (01) ==
LOC: NSC 10:19
PROVIDERS: ATTEND Ophthalmology
DX: H25.11 Age-related nuclear cataract, right eye (principal); H40.1132 Primary open-angle glaucoma, bilateral, moderate stage; Z98.890 Other specified postprocedural states; Z96.1 Presence of intraocular lens; I10 Essential (primary) hypertension; J45.990 Exercise induced bronchospasm; Z79.899 Other long term (current) drug therapy
CPT/HCPCS: 66984; C1780; J0330; J2704; J3010; J7120